=== PATIENT | female | born 1980 | race Caucasian/White ===

== ENCOUNTER 2022-08-16 11:22 | Emergency (ER) | payer MEDICAID, SELFPAY ==
[2022-08-16 11:46] VITALS: BP 121/81; PULSE 100; RESP 16; TEMP 36.6; O2SAT 88; BMI 62.3
--- NOTE | 2022-08-16 12:27 | ED_ITS ---
HPI - Animal Bite General Time Seen by Provider: 12:27 Date Seen: 08/16/22 Chief Complaint: Animal Bite Stated Complaint: Cat bite L hand Time Seen by Provider: 08/16/22 12:26 Source: patient and RN notes reviewed Mode of arrival: ambulatory Limitations: no limitations History of Present Illness HPI narrative: Liz is a very pleasant 41-year-old female with history of penicillin allergy who comes to the emergency room for a cat bite of her left 5th finger with increasing swelling. Patient notes that yesterday she was bitten by a cat that she was grooming. She has confirmed that this cat is fully vaccinated. She notes being bit numerous times before but has never had this happen. The bite is at the medial aspect of the D IP joint. She notes pain when it happened but overnight she has increased swelling and discomfort running down the entire length of her finger and even into the top of her hand. He has not experienced any fever or chills. She has not taken any medication. Related Data Home Medications Medication Instructions Recorded Confirmed dextroamphetamine-amphetamine 30 30 mg PO DAILY 08/16/22 08/16/22 mg tablet (Adderall) tramadol 50 mg tablet 50 - 100 mg PO Q6H PRN chronic pain 08/16/22 08/16/22 Previous Rx's Medication Instructions Recorded lisdexamfetamine 40 mg capsule 40 mg PO QAM #30 caps 02/01/22 (Vyvanse) dextroamphetamine-amphetamine 15 45 mg (3 x 15 mg) PO BID #180 tabs 08/08/22 mg tablet metronidazole 500 mg tablet 500 mg PO Q8H #20 tabs 08/16/22 Allergies Allergy/AdvReac Type Severity Reaction Status Date / Time Penicillins Allergy Unknown Rash Verified 08/16/22 11:45 Review of Systems Status of ROS: Reports: 10 or more systems reviewed and unremarkable except as noted in History and below Const: Denies: fever or chills Cardio: Denies: shortness of breath with exertion Resp: Denies: shortness of breath GI: Denies: nausea or vomiting Musculo: Reports: extremity pain, extremity swelling, joint pain and limited range of motion Integ/Breast: Reports: redness PFSH PFSH Social History Smoking Status: Former smoker Second hand tobacco smoke exposure: No How often do you have a drink containing alcohol: 2-4 times a month How many standard drinks containing alcohol do you have on a typical day: 1 or 2 AUDIT-C Alcohol total score: 2 Non-prescribed substance use: denies use service: No Exam Narrative: Exam Narrative: Alert and oriented. No acute distress. No respiratory distress. Examination of left 5th finger shows edema of the entire 5th digit increasing distally. Patient has a small 1.5 mm puncture wound at the medial aspect at the D IP flexion point. Forced extension does increase her discomfort. Forced extension at the MCP does not increase any pain in the hand. This area is warm to the touch. Patient does report purulent drainage earlier but I do not note this now. She also has 2 superficial scratches on the volar surface of her forearm. Const: Vital Signs, click to edit/add: Vital Signs - 24 hr 08/16/22 11:46 08/16/22 12:32 Temperature 97.9 F Pulse Rate [Pulse Oximeter] 100 Respiratory Rate 16 Blood Pressure [Ri ght Upper Arm] 121/81 Pulse Oximetry 88 100 Oxygen Delivery Me thod Room Air Room Air Documenting provider has reviewed patient's vital signs: yes Course Course Hospital Course: Patient's tetanus has not been renewed since 2011 and will do that with Adacel today. Given the rapid progression of symptoms overnight will use IV Rocephin 2 g x1 and initiation of Flagyl 500 mg. Patient will continue Flagyl 500 mg q.8 hours and see her primary tomorrow morning. Vital Signs Vital signs: Initial Vital Signs Temperature 97.9 F 08/16/22 11:46 Temperature Source Temporal Artery Scan 08/16/22 11:46 Pulse Rate 100 08/16/22 11:46 Respiratory Rate 16 08/16/22 11:46 Blood Pressure 121/81 08/16/22 11:46 Blood Pressure Mean 94 08/16/22 11:46 Blood Pressure Position Sitting 08/16/22 11:46 Pulse Oximetry 88 08/16/22 11:46 Oxygen Delivery Method Room Air 08/16/22 11:46 Vital Signs Temperature 97.9 F 08/16/22 11:46 Pulse Rate 100 08/16/22 11:46 Respiratory Rate 16 08/16/22 11:46 Blood Pressure 121/81 08/16/22 11:46 Pulse Oximetry 88 08/16/22 11:46 Oxygen Delivery Method Room Air 08/16/22 11:46 Temperature 97.9 F 08/16/22 11:46 Pulse Rate 100 08/16/22 11:46 Respiratory Rate 16 08/16/22 11:46 Blood Pressure 121/81 08/16/22 11:46 Pulse Oximetry 100 08/16/22 12:32 Oxygen Delivery Method Room Air 08/16/22 12:32 MDM - Animal Bite MDM Narrative Medical decision making narrative: 1. Cat bite cellulitis-recent given location of the puncture wound at the medial aspect of the D IP joint left 5th finger. She does not appear to have significant symptoms in the hand at this time. I do not feel that we should do a trial of orals given the rapid progression of the swelling. Instead 2 g IV Rocephin will be given in the ED and patient will be started on oral Flagyl 500 mg p.o. t.i.d.. I am hopeful that we will be able to obtain appointment with her primary Dr. Russell tomorrow morning. If she has marked improvement would transition her to an oral cephalosporin plus Flagyl, alternatively could do a floral quinolone. Antibiotic selection based on up-to-date information. 2. Tetanus updated 3. Disposition-home at this time. Recommend immediate return to the ER for progressing symptoms, vomiting, fever. Medical Records Attestation: I reviewed the patient's medical records. Imaging Data Left 5th finger x-ray: Attestation: I have reviewed the pertinent imaging results. My impression: No obvious foreign body. Discharge Plan Discharge Clinical Impression: Bite by animal Cellulitis Qualifiers: Site of cellulitis: other site Qualified Code(s): L03.818 - Cellulitis of other sites Patient Disposition: Home, Self-Care Condition: Improved Additional Instructions: Please follow up with Dr. Walter tomorrow at 11:15am ([facility] Continue Flagyl tablet every 8 hours. If continued or worsening symptoms, would suggest continuing Flagyl and the IV infusion of Rocephin. If improvement of symptoms will electronic data interchange specialist to pills. If you are worsening overnight including fever, worsening swelling, vomiting please return to the emergency room as soon as possible. Prescriptions: New metronidazole 500 mg tablet 500 mg PO Q8H Qty: 20 0RF No Action dextroamphetamine-amphetamine [Adderall] 30 mg tablet 30 mg PO DAILY tramadol 50 mg tablet 50 - 100 mg PO Q6H PRN (Reason: chronic pain) Vyvanse 40 mg capsule 40 mg PO QAM Qty: 30 0RF dextroamphetamine-amphetamine 15 mg tablet 45 mg PO BID Qty: 180 0RF Rx Instructions: administer doses at least 4-6 hours apart Follow Up/Referrals: Salvador Walter MD [Primary Care Provider] - Stand Alone Forms: [facility] Info Instructions
--- NOTE | 2022-08-16 12:28 | ED.NURSE ---
pt reports swelling at site of cat bite, on the left pinky. The swelling is traveling to her left forearm. She reports no pain to the site of the bite unless she bumps it, which the pain is then a 3. She is worried the cat bit down to her tendon because she can't bend her pinky.
[2022-08-16 12:32] VITALS: O2SAT 100
--- NOTE | 2022-08-16 12:34 | CRLHL7_ITS ---
For Patients: As a result of the Cures Act, medical imaging exams and procedure reports are released immediately into your electronic medical record. You may view this report before your referring provider. If you have questions, please contact your health care provider. Indication: Cat bite Technique: Three views Comparison: None Findings/Impression: Bones: Minimal calcification at the margin of the proximal phalanx of left 5th digit, likely some dystrophic calcification with a 1 millimeter chip fragment considered less likely. Joint spaces: Unremarkable. Soft tissues: Mild soft tissue swelling. Dictated by James Heredia MD @ 08/16/2022 1:26:35 PM (Electronically Signed)
--- OUTSIDE RECORDS SUMMARY | 2022-08-16 12:43 | XMS_ITS | Continuity of Care Document ---
Author Name Unknown Organization [facility] Address [address] [place] [address] Care Team Providers Care Route Sales Delivery Driver Name Role Phone [facility] Unavailable Unav ailable Advance Directives Directive Yes / No Effective Date File Name No Information Encounters Encounter Description Practice Location Reason(s) For Visit Diagnoses Date Provider Providers Copied on Encounter [facility], [address] [place], [place], [id number], [facility] No Information [facility]. [address] [address] [place], [id number], . tel:[phone] Referring Provider: Arian Soria, [address] [place], [address]. tel:[phone] Family History Family Member Type Diagnosis Age At Onset No Information Payers Payer name Insurance type Covered alliance party ID Authoriza johnathan(s) [facility] [id number] Social History Type Description Quantity Date Captured Comments Sex Female Smoking Status No Information Chief Complaint And Reason For Visit No Information Reason For Referral Reason For Referral No Information Plan Of Treatment Date Type Action Status No Information History Of Present Illness Encounter Date Complaint History Of Prese nt Illness No Information Functional Status Date Functional Assessmen t No Information Instructions Date Instruction Additional Infor mation No Information Assessments Type Assessment Date No Information Patient Care Teams Name Effective Dates (start - stop) Status Members No Information
--- OUTSIDE RECORDS SUMMARY | 2022-08-16 12:43 | XMS_ITS | Continuity of Care Document ---
Author Name Unknown Organization [facility] Address [address] [place] [address] Phone Care Team Providers Care Proration Clerk Name Role Phone Van Blanton MD Unavailable Unavailable Allergies, Adverse Reactions, Alerts Substance Reaction Status Criticality AMOXICILLIN TRIHYDRATE Active No In formation Medications Medication Instructions Dosage Effective Dates (start - stop) Status Comments AMPHETAMINE (unknown strength) Not Available - Active HYDROCODONE-ACETAMINOP HEN (unknown strength) Not Available - Active ADVIL (unknown strength) Not Available - Active MORPHINE SULFATE ER (unknown strength) Not Available - Active TRAMADOL HCL (unknown strength) Not Available - Active Procedures Procedure Date Office/Outpatient Visit,[facility] Office/outpatient visit,[facility] 2010 Advance Directives Directive Yes / No Effective Date File Name No Information Encounters Encounter Description Practice Location Reason(s) For Visit Diagnoses Date Provider Providers Copied on Encounter Office/Outpa tient Visit,[facility], [address], [place], [place], [id number], [place] tel:[phone] [facility] Other intervertebral disc degeneration, lumbar region 0 Transfeldt Ensor. [facility], [facility] [address] [place] [address], [facility] [address], [place], [place], [id number], [place]. tel:[phone] Referring Provider: Brent Carmona, [facility] [address] [place], [address]. tel:[phone] Office/outpa tient visit,[facility], [address] [facility] [address], [place], [address], [place] tel:[phone] [facility] No Information 1 Edacarmen Plasencia. [facility], [address], [place], [place], [id number], [place]. tel:[phone] Family History Family Member Type Diagnosis Age At Onset No Information Payers Payer name Insurance type Covered republican ID Authoriza tion(s) No Information Social History Type Description Quantity Date Captured Comments Alcohol Use Details Unknown Caffeine Use Details Unknown Tobacco Use Status Current non-smoker 20 Smoking Status Never smoker Non-Smoking Tobacco Use Details : No Details Available : No Details Available Sex Female Vital Signs Date / Time: Height Weight BMI Pulse Rate Blood Pressure Temperature Respiratory Rate Body Surface Area Head Circumference Head Circ. Percentile Wt./Arturo. Percentile BMI percentile Pulse Ox Inhaled Ox 3:21 PM 65.75 in 78.018 kg (172.00 lbs) 27.9 7 kg/m eter (2) 98.90 F Chief Complaint And Reason For Visit No Information Reason For Referral Reason For Referral No Information Plan Of Treatment Date Type Action Status No Information History Of Present Illness Encounter Date Complaint History Of Prese nt Illness No Information Functional Status Date Functional Assessmen t No Information Instructions Date Instruction Additional Infor mation No Information Assessments Type Assessment Date assessment Other intervertebral disc degene ration, lumbar region Patient Care Teams Name Effective Dates (start - stop) Status Members No Information
--- OUTSIDE RECORDS SUMMARY | 2022-08-16 12:44 | XMS_ITS | Continuity of Care Document ---
Author Name Unknown Organization [facility] Address [address] [place] [address] Care Team Providers Care Laundry Routeman Name Role Phone [facility] Unavailable Unav ailable Advance Directives Directive Yes / No Effective Date File Name No Information Encounters Encounter Description Practice Location Reason(s) For Visit Diagnoses Date Provider Providers Copied on Encounter [facility], [address] [place], [place], [id number], [facility] No Information [facility]. [address] [facility], [id number], . tel:[phone] Referring Provider: Arian Soria, [address] [place], [address]. tel:[phone] Family History Family Member Type Diagnosis Age At Onset No Information Payers Payer name Insurance type Covered republican ID Authoriza johnathan(s) [facility] [id number] Social History Type Description Quantity Date Captured [...]
--- OUTSIDE RECORDS SUMMARY | 2022-08-16 12:44 | XMS_ITS | Continuity of Care Document ---
Author Name Unknown Organization [facility] kylah Address [address] [facility] [place] [address] Phone Care Team Providers Care Sports Cartoonist Name Role Phone Charleen Lopez CNP Unavailable Unavailable Allergies, Adverse Reactions, Alerts Substance Reaction Status Criticality amoxicillin Rash Active No Information Medications Medication Instructions Dosage Effective Dates (start - stop) Status Comments tramadol 50 mg tablet take 1 - 2 tablet by ORAL route every 6 hours as needed for chronic pain, max 6/day - Active Adderall XR 30 mg capsule,extended release take 2 capsule by ORAL route every day in the morningupon awakening 60 MG - Active tramadol 50 mg tablet take 1 - 2 tablet by ORAL route every 6 hours as needed for chronic pain, max 6/day - No Longer Active bridge script Procedures Procedure Date OFFICE VISIT, EST TELEMEDICINE Drug Urine Toxology With Chromatography Drug test def 8-14 classes Foll-up eval q3mo opiod tx OFFICE/OUTPATIENT VISIT, EST Foll-up eval q3mo opiod tx OFFICE VISIT, EST TELEMEDICINE Foll-up eval q3mo opiod tx OFFICE/OUTPATIENT VISIT, EST Foll-up eval q3mo opiod tx OFFICE VISIT, EST TELEMEDICINE Foll-up eval q3mo opiod tx OFFICE/OUTPATIENT VISIT, EST ROUTINE BLOOD DRAW Drug test def 1-7 classes Drug Urine Toxology With Chromatography Foll-up eval q3mo opiod tx OFFICE VISIT, EST TELEMEDICINE Foll-up eval q3mo opiod tx OFFICE VISIT, EST TELEMEDICINE Drug Urine Toxology With Chromatography Drug test def 1-7 classes Foll-up eval q3mo opiod tx OFFICE/OUTPATIENT VISIT, EST PT-FOCUSED HLTH RISK ASSMT Foll-up eval q3mo opiod tx OFFICE VISIT, EST TELEMEDICINE Foll-up eval q3mo opiod tx OFFICE VISIT, EST TELEMEDICINE Drug Urine Toxology With Chromatography Drug test def 22+ classes Foll-up eval q3mo opiod tx PT-FOCUSED HLTH RISK ASSMT OFFICE/OUTPATIENT VISIT, EST Foll-up eval q3mo opiod tx OFFICE VISIT, EST TELEMEDICINE Foll-up eval q3mo opiod tx OFFICE VISIT, EST TELEMEDICINE Foll-up eval q3mo opiod tx OFFICE VISIT, EST TELEMEDICINE Foll-up eval q3mo opiod tx OFFICE VISIT, EST TELEMEDICINE Foll-up eval q3mo opiod tx OFFICE VISIT, EST TELEMEDICINE Foll-up eval q3mo opiod tx OFFICE VISIT, EST TELEMEDICINE Foll-up eval q3mo opiod tx OFFICE VISIT, EST TELEMEDICINE Foll-up eval q3mo opiod tx OFFICE VISIT, EST TELEMEDICINE Foll-up eval q3mo opiod tx OFFICE VISIT, EST TELEMEDICINE 20 OFFICE/OUTPATIENT VISIT, EST Foll-up eval q3mo opiod tx OFFICE VISIT, EST TELEMEDICINE 20 OFFICE VISIT, EST TELEMEDICINE 20 Foll-up eval q3mo opiod tx OFFICE VISIT, EST TELEMEDICINE 20 Foll-up eval q3mo opiod tx OFFICE/OUTPATIENT VISIT, EST Foll-up eval q3mo opiod tx ROUTINE BLOOD DRAW OFFICE VISIT, EST TELEMEDICINE 20 Foll-up eval q3mo opiod tx Foll-up eval q3mo opiod tx OFFICE/OUTPATIENT VISIT, EST Drug test def 22+ classes Drug Urine Toxology With Chromatography Foll-up eval q3mo opiod tx OFFICE/OUTPATIENT VISIT, EST Foll-up eval q3mo opiod tx OFFICE/OUTPATIENT VISIT, EST OFFICE/OUTPATIENT VISIT, EST OFFICE/OUTPATIENT VISIT, EST OFFICE/OUTPATIENT VISIT, EST Drug Urine Toxology With Chromatography OFFICE/OUTPATIENT VISIT, EST OFFICE/OUTPATIENT VISIT, EST OFFICE/OUTPATIENT VISIT, EST OFFICE/OUTPATIENT VISIT, EST Drug test def 22+ classes Drug Urine Toxology With Chromatography OFFICE/OUTPATIENT VISIT, EST OFFICE/OUTPATIENT VISIT, EST OFFICE/OUTPATIENT VISIT, EST Drug test def 22+ classes Drug Urine Toxology With Chromatography OFFICE/OUTPATIENT VISIT, EST OFFICE/OUTPATIENT VISIT, EST OFFICE/OUTPATIENT VISIT, EST OFFICE/OUTPATIENT VISIT, EST OFFICE/OUTPATIENT VISIT, EST OFFICE/OUTPATIENT VISIT, EST OFFICE/OUTPATIENT VISIT, EST OFFICE/OUTPATIENT VISIT, EST OFFICE/OUTPATIENT VISIT, EST OFFICE/OUTPATIENT VISIT, EST OFFICE/OUTPATIENT VISIT, EST OFFICE/OUTPATIENT VISIT, EST OFFICE/OUTPATIENT VISIT, EST OFFICE/OUTPATIENT VISIT, EST OFFICE/OUTPATIENT VISIT, EST OFFICE/OUTPATIENT VISIT, EST OFFICE/OUTPATIENT VISIT, EST OFFICE/OUTPATIENT VISIT, EST OFFICE/OUTPATIENT VISIT, EST OFFICE/OUTPATIENT VISIT, EST OFFICE/OUTPATIENT VISIT, EST Cancelled Appt Fee Cancelled Appt Fee THERAPEUTIC EXERCISES OFFICE/OUTPATIENT VISIT, EST THERAPEUTIC EXERCISES NEUROMUSCULAR REEDUCATION THERAPEUTIC EXERCISES MANUAL THERAPY TheraCane OFFICE/OUTPATIENT VISIT, EST THERAPEUTIC EXERCISES PT EVALUATION NEUROMUSCULAR REEDUCATION Surgical trays FLUOROGUIDE FOR SPINE INJECT Lidocaine injection Facet Jt Inj Lumbar RIGHT Facet Inj Lumbar 2nd Level RIGHT 2013 OFFICE/OUTPATIENT VISIT, EST OFFICE CONSULTATION Advance Directives Directive Yes / No Effective Date File Name No Information Encounters Encounter Description Practice Location Reason(s) For Visit Diagnoses Date Provider Providers Copied on Encounter [facility], [address] [place], [place], [id number] , [place] tel: [phone] [facility] [place] No Information 3 John Moseley [address] [place], [place], [id number], [place]. tel:[phone] [facility], [address], [place], [id number] , [place] tel: [phone] [facility] [place] No Information 3 John Moseley [address] [place] [address], [id number], [place]. tel:[phone] [facility], [address] [place] [address], [id number] , [place] tel:[phone] [facility] [place] No Information 3 Yang Don. [address] [place] [address], [id number], [place]. tel:[phone] OFFICE VISIT, EST TELEMEDICINE [facility], [address] [place] [address], [id number] , [place] tel:[phone] [facility] low back pain (chief complaint) Other spondylosis, lumbar regionOther intervertebral disc degeneration, lumbosacral regionPain in unspecified lower legLong term (current) use of opiate analgesic 3 Yang Don. [address] [place] [address], [id number], [place]. tel:[phone] Referring Provider: Arian Purvis, [address] [place] [address], [address] . tel:[phone] [facility], [address] [place] [address], [id number] , [place] tel:[phone] [facility] No Information 3 John Villaseñor. [address] [place] [address], [id number], [place]. tel:[phone] Referring Provider: Arian Purvis, [address] [place] [address], [address] . tel:[phone] OFFICE/OUTPAT IENT VISIT, EST [facility], [address] [place] [address], [id number] , [place] [phone] [facility] low back pain (chief complaint) Other spondylosis, lumbar regionOther intervertebral disc degeneration, lumbosacral regionPain in unspecified lower legLong term (current) use of opiate analgesicEncou nter for therapeutic drug level monitoring 3 John Villaseñor. [address] [place] [address], [id number], [place]. tel:[phone] Referring Provider: Arian Purvis, [address] [place], [place] [address], [address] . tel:[phone] OFFICE VISIT, [facility], [address] [place] [address], [id number] , [place] [phone] [facility] low back pain (chief complaint) Other spondylosis, lumbar regionOther intervertebral disc degeneration, lumbosacral regionPain in unspecified lower legLong term (current) use of opiate analgesic 3 Krenzer Charleen. [address] [place] [address], [id number], [place]. tel:[phone] Referring Provider: Arian Purvis, [address] [place] [address], [address] . tel:[phone] OFFICE/OUTPAT IENT VISIT, [facility], [address] [place] [address], [id number] , [place] [phone] [facility] low back pain (chief complaint) Other intervertebral disc degeneration, lumbosacral regionPain in unspecified lower legLong term (current) use of opiate analgesicOther spondylosis, lumbar region 2 Krenzer Charleen. [address] [place] [address], [id number], [place]. tel:[phone] Referring Provider: Arian Purvis, [address] [place] [address] [place], [address] . tel:[phone] OFFICE VISIT, [facility], [address] [place] [address], [id number] , [place] [phone] [facility] low back pain (chief complaint) Other intervertebral disc degeneration, lumbosacral regionPain in unspecified lower legLong term (current) use of opiate analgesic 2 Krenzer Charleen. [address] [place] [address], [id number], [place]. tel:[phone] OFFICE/OUTPAT IENT VISIT, EST [facility], [address] [place] [address], [id number] , [place] tel:[phone] [facility] [place] low back pain (chief complaint) Other intervertebral disc degeneration, lumbosacral regionPain in unspecified lower legLong term (current) use of opiate analgesicEncou nter for therapeutic drug level monitoring 2 John Villaseñor. [address] [place] [address], [id number], [place]. tel:[phone] Referring Provider: Arian Purvis, [address] [place] [address], [address] . tel:[phone] [facility], [address] [place] [address], [id number] , [place] tel:[phone] [facility] [place] No Information 2 John Villaseñor. [address] [place] [address], [id number], [place]. tel:[phone] Referring Provider: Arian Purvis, [address] [place] [address], [address] . tel:[phone] OFFICE VISIT, [facility], [address] [place] [address], [id number] , [place] tel:[phone] [facility] low back pain (chief complaint) Other intervertebral disc degeneration, lumbosacral regionPain in unspecified lower legLong term (current) use of opiate analgesic 2 John Villaseñor. [address] [place] [address], [id number], [place]. tel:[phone] OFFICE VISIT, EST TELEMEDICINE [facility], [address] [place] [address], [id number] , [place] tel:[phone] [facility] [place] low back pain (chief complaint) Other intervertebral disc degeneration, lumbosacral regionPain in unspecified lower legLong term (current) use of opiate analgesic 2 John Villaseñor. [address] [place] [address], [id number], [place]. tel:[phone] Referring Provider: Arian Purvis, [address] [place], [place] [address], [address] . tel:[phone] [facility], [address] [place] [address], [id number] , [place] tel:[phone] [facility] Intervertebral disc disorders with radiculopathy, lumbar region Apr-2 2 Alpanzer Charleen. [address] [place] [address], [id number], [place]. tel:[phone] [facility], [address] [place] [address], [id number] , [place] tel:[phone] [facility] No Information 2 Aubreezer Charleen. [address] [place] [address], [id number], [place]. tel:[phone] Referring Provider: Arian Purvis, [address] [place], [place] [address], [address] . tel:[phone] OFFICE/OUTPAT IENT VISIT, EST [facility], [address] [place] [address], [id number] , [place] tel:[phone] [facility] low back pain (chief complaint) [facility] (current) use of opiate analgesicPain in unspecified lower legOther intervertebral disc degeneration, lumbosacral regionEncounte r for therapeutic drug level monitoringEnco unter for screening for other disorder 2 Aubreezer Charleen. [address] [place] [address], [id number], [place]. tel:[phone] Referring Provider: Arian Purvis, [address] [place], [place] [address], [address] . 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 [address] [place] [address], [id number], [place]. 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 [address] [place] [address], [id number], [place]. tel:[phone] [facility], [address] [place] [address], [id number] , [place] [phone] [facility] No Information 1 John Villasñeor. [address] [place] [address], [id number], [place]. tel:[phone] Referring Provider: Arian Purvis, [address] [place], [place] [address], [address] . 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 [address] [place] [address], [id number], [place]. tel:[phone] Referring Provider: Arian Purvis, [address] [place], [place] [address], [address] . 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 [address] [place] [address], [id number], [place]. tel:[phone] Referring Provider: Arian Purvis, [address] [place], [place] [address], [address] . tel:[phone] OFFICE VISIT, EST TELEMEDICINE [facility], [address] [place] [address], [id number] , [place] tel:[phone] [facility] [place] low back pain (chief complaint) termite exterminator (current) use of opiate analgesicPain in unspecified lower legOther intervertebral disc degeneration, lumbosacral region 1 John Charleen. [address] [place] [address], [id number], [place]. tel:[phone] Referring Provider: Arian Purvis, [address] [place] [address] [place], [address] . tel:[phone] OFFICE VISIT, EST TELEMEDICINE [facility], [address] [place] [address], [id number] , [place] tel:[phone] [facility] low back pain (chief complaint) [facility] (current) use of opiate analgesicPain in unspecified lower legOther intervertebral disc degeneration, lumbosacral region 1 John CharleenPablo [address] [place] [address], [id number], [place]. tel:[phone] Referring Provider: Arian Purvis, [address] [place] [address] [facility] [place], [address] . tel:[phone] OFFICE VISIT, EST TELEMEDICINE [facility], [address] [place] [address], [id number] , [place] tel:[phone] [facility] [place] low back pain (chief complaint) CHCF (current) use of opiate analgesicPain in unspecified lower legOther intervertebral disc degeneration, lumbosacral region 1 Krenzer Charleen. [address] [place] [address], [id number], [place]. tel:[phone] Referring Provider: Arian Purvis, [address] [place] [address] [place], [address] . tel:[phone] OFFICE VISIT, [facility], [address] [place] [address], [id number] , [place] [phone] [facility] low back pain (chief complaint) CH[facility] (current) use of opiate analgesicPain in unspecified lower legOther intervertebral disc degeneration, lumbosacral region Dec-0 8-202 0 Krenzer Charleen. [address] [place] [address], [id number], [place]. tel:[phone] Referring Provider: Arian Purvis, [address] [place], [place] [address], [address] . tel:[phone] OFFICE VISIT, [facility], [address] [place] [address], [id number] , [place] [phone] [facility] low back pain (chief complaint) [facility]CF (current) use of opiate analgesicPain in unspecified lower legOther intervertebral disc degeneration, lumbosacral region Nov-0 9-202 0 Krenzer Charleen. [address] [place] [address], [id number], [place]. tel:[phone] Referring Provider: Arian Purvis, [address] [place], [place] [address], [address] . tel:[phone] OFFICE VISIT, [facility], [address] [place] [address], [id number] , [place] [phone] [facility] ([facility] complaint) Pain in unspecified lower legOther intervertebral disc degeneration, lumbosacral regionLong term (current) use of opiate analgesic Sep-1 0-202 0 Krenzer Charleen. [address] [place] [address], [id number], [place]. tel:[phone] Referring Provider: Arian Purvis, [address] [place], [place] [address], [address] . tel:[phone] OFFICE VISIT, [facility], [address] [place] [address], [id number] , [place] tel:[phone] [facility] low back pain (chief complaint) Pain in unspecified lower legOther intervertebral disc degeneration, lumbosacral regionLong term (current) use of opiate analgesic Aug-2 8202 0 Krenzer Charleen. [address] [place] [address], [id number], [place]. tel:[phone] Referring Provider: Arian Purvis, [address] [place], [place] [address], [address] . tel:[phone] OFFICE VISIT, [facility], [address] [place] [address], [id number] , [place] tel:[phone] [facility] low back pain (chief complaint) [facility] (current) use of opiate analgesicOther intervertebral disc degeneration, lumbosacral regionPain in unspecified lower leg Aug-0 2202 0 Luke Rodriguez. [address] [place] [address], [id number], [place]. tel:[phone] Referring Provider: Arian Purvis, [address] [place], [place] [address], [address] . tel:[phone] OFFICE/OUTPAT IENT VISIT, [facility], [address] [place] [address], [id number] , [place] tel:[phone] [facility] low back pain (chief complaint) Pain in unspecified lower legOther intervertebral disc degeneration, lumbosacral regionLong term (current) use of opiate analgesic Jul-0 2202 0 Krenzer Charleen. [address] [place] [address], [id number], [place]. tel:[phone] Referring Provider: Arian Purvis, [address] [place], [place] [address], [address] . tel:[phone] OFFICE VISIT, [facility], [address] [place] [address], [id number] , [place] tel:[phone] [facility] low back pain (chief complaint) Other intervertebral disc degeneration, lumbosacral regionPain in unspecified lower legLong term (current) use of opiate analgesic Apr-3 0-202 0 John Villaseñor. [address] [place] [address], [id number], [place]. tel:[phone] Referring Provider: Arian Purvis, [address] [place] [address] [facility] [place], [address] . tel:[phone] OFFICE VISIT, [facility], [address] [place] [address], [id number] , [place] [phone] [facility]) Other intervertebral disc degeneration, lumbosacral regionPain in unspecified lower legLong term (current) use of opiate analgesic Mar-2 - 0 John Villaseñor. [address] [place] [address], [id number], [place]. tel:[phone] Referring Provider: Arian Purvis, [address] [place] [address] [place], [address] . tel:[phone] OFFICE/OUTPAT IENT VISIT, [facility], [address] [place] [address], [id number] , [place] [phone] [facility] low back pain (chief complaint) Other intervertebral disc degeneration, lumbosacral regionPain in unspecified lower legLong term (current) use of opiate analgesicEncou nter for screening for other disorder Apr-0 0 John Villaseñor. [address] [place] [address], [id number], [place]. tel:[phone] Referring Provider: Arian Purvis, [address] [place] [address] [place], [address] . tel:[phone] OFFICE VISIT, [facility], [address] [place] [address], [id number] , [place] tel:[phone] [facility] low back pain (chief complaint) Other intervertebral disc degeneration, lumbosacral regionPain in unspecified lower legLong term (current) use of opiate analgesic Feb-0 - 0 Alpanzer Charleen. [address] [place], [place], [id number], [place]. tel:[phone] OFFICE/OUTPAT IENT VISIT, [facility], [address] [place] [address], [id number] , [place] [phone] [facility] low back pain (chief complaint) Other intervertebral disc degeneration, lumbosacral regionPain in unspecified lower legLong term (current) use of opiate analgesic Feb-0 0 Krenzer Charleen. [address] [place] [address], [id number], [place]. tel:[phone] Referring Provider: Arian Purvis, [address] [place] [address] [place], [address] . tel:[phone] OFFICE/OUTPAT IENT VISIT, [facility], [address] [place] [address], [id number] , [place] tel:[phone] [facility] low back pain (chief complaint) Other intervertebral disc degeneration, lumbosacral regionLong term (current) use of opiate analgesicPain in unspecified lower legEncounter for therapeutic drug level monitoring 0 9 [facility]. [address], [place], [id number], [place]. tel:[phone] Referring Provider: Arian Purvis, [place], [address] . tel:[phone] OFFICE/OUTPAT IENT VISIT, [facility], [address] [place] [address], [id number] , [place] tel:[phone] [facility] low back pain (chief complaint) Other intervertebral disc degeneration, lumbosacral regionLong term (current) use of opiate analgesicPain in unspecified lower leg Nov-0 6 9 [facility]. [address] [facility] [address], [place], [place], [id number], [place]. tel:[phone] Referring Provider: Arian Purvis, [address] [place] [address], [address] . tel:[phone] OFFICE/OUTPAT IENT VISIT, [facility], [address] [place] [address], [id number] , [place] tel:[phone] [facility] low back pain (chief complaint) Other intervertebral disc degeneration, lumbosacral regionLong term (current) use of opiate analgesic Sep-2 9 Krenzer Charleen. [address] [place] [address], [id number], [place]. tel:[phone] Referring Provider: Arian Purvis, [address] [place] [address] [facility] [place], [address] . tel:[phone] OFFICE/OUTPAT IENT VISIT, [facility], [address] [place] [address], [id number] , [place] tel:[phone] [facility] low back pain (chief complaint) Other intervertebral disc degeneration, lumbosacral regionLong term (current) use of opiate analgesic Aug-2 9 Krenzer Charleen. [address] [place] [address], [id number], [place]. tel:[phone] Referring Provider: Arian Purvis, [address] [place] [address], [address] . tel:[phone] [facility], [address] [place] [address], [id number] , [place] tel:[phone] [facility] low back pain (chief complaint) Other intervertebral disc degeneration, lumbosacral regionLong term (current) use of opiate analgesic Aug-2 9 Krenzer Charleen. [address] [place] [address], [id number], [place]. tel:[phone] Referring Provider: Arian Purvis, [address] [place] [address] [place], [address] . tel:[phone] OFFICE/OUTPAT IENT VISIT, [facility], [address] [place] [address], [id number] , [place] tel: [phone] [facility] low back pain (chief complaint) Other intervertebral disc degeneration, lumbosacral regionLong term (current) use of opiate analgesicEncou nter for therapeutic drug level monitoring John Moseley [address] [place] [address], [id number], [place]. tel:[phone] Referring Provider: Arian Purvis, [address] [place], [place] [address], [address] . tel:[phone] OFFICE/OUTPAT IENT VISIT, [facility], [address] [place] [address], [id number] , [place] tel:[phone] [facility] low back pain (chief complaint) Other intervertebral disc degeneration, lumbosacral regionLong term (current) use of opiate analgesic John Moseley [address] [place] [address], [id number], [place]. tel:[phone] Referring Provider: Arian Purvis, [address] [place], [place] [address], [address] . tel:[phone] OFFICE/OUTPAT IENT VISIT, [facility], [address] [place] [address], [id number] , [place] tel:[phone] [facility] low back pain (chief complaint) Other intervertebral disc degeneration, lumbosacral regionLong term (current) use of opiate analgesic John Moseley [address] [place] [address], [id number], [place]. tel:[phone] Referring Provider: Arian Purvis, [address] [place], [place] [address], [address] . tel:[phone] OFFICE/OUTPAT IENT VISIT, [facility], [address] [place] [address], [id number] , [place] [phone] [facility] low back pain (chief complaint) Other intervertebral disc degeneration, lumbosacral region Jasper- 9 John Villaseñor. [address] [place] [address], [id number], [place]. tel:[phone] Referring Provider: Arian Purvis, [address] [place], [place] [address], [address] . tel:[phone] OFFICE/OUTPAT IENT VISIT, [facility], [address] [place] [address], [id number] , [place] [phone] [facility] low back pain (chief complaint) Other intervertebral disc degeneration, lumbosacral regionLong term (current) use of opiate analgesic Nov-0 8 John Villaseñor. [address] [place] [address], [id number], [place]. tel:[phone] Referring Provider: Arian Purvis, [address] [place], [place] [address], [address] . tel:[phone] OFFICE/OUTPAT IENT VISIT, [facility], [address] [place] [address], [id number] , [place] [phone] [facility] low back pain (chief complaint) Other intervertebral disc degeneration, lumbosacral regionLong term (current) use of opiate analgesic Sep-0 8 Luke Rodriguez. [address] [place] [address], [id number], [place]. tel:[phone] Referring Provider: Arian Purvis, [address] [place], [place] [address], [address] . tel:[phone] OFFICE/OUTPAT IENT VISIT, [facility], [address] [place] [address], [id number] , [place] tel:[phone] [facility] low back pain (chief complaint) Other intervertebral disc degeneration, lumbosacral region Blaze-0 2 8 John Villaseñor. [address] [place] [address], [id number], [place]. tel:[phone] Referring Provider: Arian Purvis, [address] [place] [address], [place], [address] . tel:[phone] OFFICE/OUTPAT IENT VISIT, [facility], [address] [place] [address], [id number] , [place] tel:[phone] [facility] low back pain (chief complaint) Other intervertebral disc degeneration, lumbosacral regionLong term (current) use of opiate analgesic May-0 3-201 8 Krenzer Charleen. [address] [place] [address], [id number], [place]. [phone] Referring Provider: Arian Purvis, [address] [place] [address], [address] . tel:[phone] OFFICE/OUTPAT IENT VISIT, [facility], [address] [place] [address], [id number] , [place] tel:[phone] [facility] low back pain (chief complaint) Other intervertebral disc degeneration, lumbosacral regionLong term (current) use of opiate analgesic Mar-0 7-201 8 Krenzer Charleen. [address] [place] [address], [id number], [place]. [phone] Referring Provider: Arian Purvis, [address] [place] [address], [address] . tel:[phone] OFFICE/OUTPAT IENT VISIT, [facility], [address] [place] [address], [id number] , [place] tel:[phone] [facility] low back pain (chief complaint) Other intervertebral disc degeneration, lumbosacral region 0-201 8 Krenzer Charleen. [address] [place] [address], [id number], [place]. tel:[phone] Referring Provider: Arian Purvis, [address] [place] [address], [address] . tel:[phone] OFFICE/OUTPAT IENT VISIT, [facility], [address] [place] [address], [id number] , [place] tel:[phone] [facility] low back pain (chief complaint) Other intervertebral disc degeneration, lumbosacral region 7 Aubreezer Charleen. [address] [place] [address], [id number], [place]. tel:[phone] Referring Provider: Arian Purvis, [address] [place] [address], [address] . tel:[phone] OFFICE/OUTPAT IENT VISIT, [facility], [address] [place] [address], [id number] , [place] tel:[phone] [facility] low back pain (chief complaint) Other intervertebral disc degeneration, lumbosacral region 7 John Charleen. [address] [place] [address], [id number], [place]. tel:[phone] Referring Provider: Arian Purvis, [address] [place] [address], [address] . tel:[phone] OFFICE/OUTPAT IENT VISIT, [facility], [address] [place] [address], [id number] , [place] tel:[phone] [facility] low back pain (chief complaint) Other intervertebral disc degeneration, lumbosacral regionLong term (current) use of opiate analgesic 7 John Villaseñor. [address] [place] [address], [id number], [place]. tel:[phone] Referring Provider: Arian Purvis, [address] [place] [address], [address] . tel:[phone] OFFICE/OUTPAT IENT VISIT, [facility], [address] [place] [address], [id number] , [place] tel:[phone] [facility] low back pain (chief complaint) Other intervertebral disc degeneration, lumbosacral region 2-201 7 John Villaseñor. [address] [place] [address], [id number], [place]. tel:[phone] Referring Provider: Arian Purvis, [address] [place], [place] [address], [address] . tel:[phone] OFFICE/OUTPAT IENT VISIT, [facility], [address] [place] [address], [id number] , [place] [phone] [facility] low back pain (chief complaint) Other intervertebral disc degeneration, lumbosacral region 7 Krenzer Charleen. [address] [place] [address], [id number], [place]. tel:[phone] Referring Provider: Arian Purvis, [address] [place] [address] [place], [address] . tel:[phone] OFFICE/OUTPAT IENT VISIT, [facility], [address] [place] [address], [id number] , [place] tel:[phone] [facility] low back pain (chief complaint) Other intervertebral disc degeneration, lumbosacral region 6 Krenzer Charleen. [address] [place] [address], [id number], [place]. tel:[phone] Referring Provider: Arian Purvis, [address] [place], [place] [address], [address] . tel:[phone] OFFICE/OUTPAT IENT VISIT, [facility], [address] [place] [address], [id number] , [place] tel:[phone] [facility] low back pain (chief complaint) Other intervertebral disc degeneration, lumbosacral regionLong term (current) use of opiate analgesic 6 Krenzer Charleen. [address] [place] [address], [id number], [place]. tel:[phone] Referring Provider: Arian Purvis, [address] [place], [place] [address], [address] . tel:[phone] OFFICE/OUTPAT IENT VISIT, [facility], [address] [place] [address], [id number] , [place] tel:[phone] [facility] low back pain (chief complaint) Other intervertebral disc degeneration, lumbosacral region 6 Krenzer Charleen. [address] [place] [address], [id number], [place]. tel:[phone] Referring Provider: Arian Purvis, [address] [place] [address] [place], [address] . tel:[phone] OFFICE/OUTPAT IENT VISIT, [facility], [address] [place] [address], [id number] , [place] tel:[phone] [facility] low back pain (chief complaint) Other intervertebral disc degeneration, lumbosacral region 6 Krenzer Charleen. [address] [place] [address], [id number], [place]. tel:[phone] Referring Provider: Arian Purvis, [address] [place] [address], [address] . tel:[phone] OFFICE/OUTPAT IENT VISIT, [facility], [address] [place] [address], [id number] , [place] tel:[phone] [facility] low back pain (chief complaint) Other intervertebral disc degeneration, lumbosacral region 3-201 6 Krenzer Charleen. [address] [place] [address], [id number], [place]. tel:[phone] Referring Provider: Arian Purvis, [address] [place] [address], [address] . tel:[phone] OFFICE/OUTPAT IENT VISIT, [facility], [address] [place] [address], [id number] , [place] tel:[phone] [facility] Back Pain (chief complaint) Other intervertebral disc degeneration, lumbosacral region 0 6-201 6 Krenzer Charleen. [address] [place] [address], [id number], [place]. tel:[phone] Referring Provider: Arian Purvis, [address] [place] [address], [address] . 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 [address] [place] [address], [id number], [place]. tel:[phone] OFFICE/OUTPAT IENT VISIT, [facility], [address] [place] [address], [id number] , [place] tel:[phone] [facility] [place] Back Pain (chief complaint) Other intervertebral disc degeneration, lumbosacral region Dec-0 5-201 5 Krenzer Charleen. [address] [place] [address], [id number], [place]. tel:[phone] Referring Provider: Arian Purvis, [address] [place] [address], [address] . tel:[phone] OFFICE/OUTPAT IENT VISIT, [facility], [address] [place] [address], [id number] , [place] tel:[phone] [facility] [place] Back Pain (chief complaint) Other intervertebral disc degeneration, lumbosacral region Nov-0 8-201 5 Krenzer Charleen. [address] [place] [address], [id number], [place]. tel:[phone] Referring Provider: Arian Purvis, [address] [place] [address], [address] . tel:[phone] OFFICE/OUTPAT IENT VISIT, [facility], [address] [place] [address], [id number] , [place] [phone] [facility] [place] Back Pain (chief complaint) Degeneration of lumbar or lumbosacral intervertebral disc 3-201 5 Krenzer Charleen. [address] [place] [address], [id number], [place]. tel:[phone] Referring Provider: Arian Purvis, [address] [place], [place] [address], [address] . tel:[phone] OFFICE/OUTPAT IENT VISIT, [facility], [address] [place] [address], [id number] , [place] tel:[phone] [facility] [place] Back Pain (chief complaint) Degeneration of lumbar or lumbosacral intervertebral disc Gene- 5 Krenzer Charleen. [address] [place] [address], [id number], [place]. [phone] Referring Provider: Arian Purvis, [address] [place] [address] [place], [address] . tel:[phone] OFFICE/OUTPAT IENT VISIT, [facility], [address] [place] [address], [id number] , [place] tel:[phone] [facility] Back Pain (chief complaint) Degeneration of lumbar or lumbosacral intervertebral disc May- 5 5 Krenzer Charleen. [address] [place] [address], [id number], [place]. [phone] Referring Provider: Arian Purvis, [address] [place], [place] [address], [address] . tel:[phone] OFFICE/OUTPAT IENT VISIT, [facility], [address] [place] [address], [id number] , [place] tel:[phone] [facility] Back Pain (chief complaint) Degeneration of lumbar or lumbosacral intervertebral disc Fe- 2 5 Krenzer Charleen. [address] [place] [address], [id number], [place]. tel:[phone] Referring Provider: Arian Purvis, [address] [place], [place] [address], [address] . tel:[phone] [facility], [address] [place] [address], [id number] , [place] tel:[phone] [facility] Current use of a medication Feb-1 1-201 5 John Villaseñor. [address] [place] [address], [id number], [place]. [phone] [facility], [address] [place] [address], [id number] , [place] tel: [phone] [facility] general orthopedic (chief complaint) Lumbago No Information OFFICE/OUTPAT IENT VISIT, [facility], [address] [place] [address], [id number] , [place] tel: [phone] [facility] Back Pain (chief complaint) Degeneration of lumbar or lumbosacral intervertebral disc 4 John Villaseñor. [address] [place] [address], [id number], [place]. [phone] Referring Provider: Arian Purvis, [address] [place] [address] [place], [address] . tel:[phone] OFFICE/OUTPAT IENT VISIT, [facility], [address] [place] [address], [id number] , [place] tel: [phone] [facility] low back pain (chief complaint) LumbagoDegener ation of lumbar or lumbosacral intervertebral disc 4 John Villaseñor. [address] [place] [address], [id number], [place]. [phone] Referring Provider: Arian Purvis, [address] [place] [address] [place], [address] . tel:[phone] [facility], [address] [place] [address], [id number] , [place] tel: [phone] [facility] [place] No Information No Information Referring Provider: Arian Purvis, [address] [place] [address] [place], [address] . [phone] [facility], [address] [place] [address], [id number] , [place] tel: [phone] [facility] [place] No Information 4 Will Arian. [address] [place] [address], [id number], [place]. tel:[phone] Referring Provider: Arian Purvis, [address] [place] [address], [address] . tel:[phone] [facility], [address] [place] [address], [id number] , [phone] [facility] [place] back pain (chief complaint) No Information 4 Will Arian. [address] [place] [address], [id number], [place]. tel:[phone] Referring Provider: Arian Purvis, [address] [place] [address], [address] . tel:[phone] OFFICE/OUTPAT IENT VISIT, [facility], [address] [place] [address], [id number] , [place] tel:[phone] [facility] low back pain (chief complaint) Degeneration of lumbar or lumbosacral intervertebral disc 4 John Villaseñor. [address] [place] [address], [id number], [place]. tel:[phone] Referring Provider: Arian Purvis, [address] [place] [address], [address] . tel:[phone] [facility], [address] [place] [address], [id number] , [place] tel:[phone] [facility] [place] back pain (chief complaint) No Information 4 Will Arian. [address] [place] [address], [id number], [place]. tel:[phone] Referring Provider: Arian Purvis, [address] [place] [address], [address] . tel:[phone] [facility], [address] [place] [address], [id number] , [place] tel:[phone] [facility] [place] back pain (chief complaint) No Information 4 Dain Don. [address] [place] [address], [id number], [place]. tel:[phone] Referring Provider: Arian Purvis, [address] [place] [address], [address] . tel:[phone] OFFICE/OUTPAT IENT VISIT, [facility], [address] [place] [address], [id number] , [place] tel:[phone] [facility] [place] low back pain (chief complaint) Degeneration of lumbar or lumbosacral intervertebral disc 4 John Villaseñor. [address] [place] [address], [id number], [place]. tel:[phone] Referring Provider: Arian Purvis, [address] [place] [address], [address] . tel:[phone] [facility], [address] [place] [address], [id number] , [place] tel:[phone] [facility] [place] back pain (chief complaint) No Information 4 John Villaseñor. [address] [place] [address], [id number], [place]. tel:[phone] Referring Provider: Arian Purvis, [address] [place] [address], [address] . tel:[phone] [facility], [address] [place] [address], [id number] , [place] tel:[phone] [facility] [place] Degeneration of lumbar or lumbosacral intervertebral disc 4 Diana Pena. [address] [place] [address], [id number], [place]. tel:[phone] Referring Provider: Arian Purvis, [address] [place] [address], [address] . tel:[phone] OFFICE/OUTPAT IENT VISIT, [facility], [address] [place] [address], [id number] , tel:[phone] [facility] [place] low back pain (chief complaint) Lumbago 4-201 4 John Villaseñor. [address] [place] [address], [id number], . tel:[phone] Referring Provider: Arian Purvis, [address] [place] [address], [address] . tel:[phone] OFFICE CONSULTATION [facility], [address] [place] [address], [id number] , tel:[phone] [facility] low back pain (chief complaint) Degeneration of lumbar or lumbosacral intervertebral disc 0-201 4 John Villaseñor. [address] [place], [place], [id number], . tel:[phone] Referring Provider: Arian Purvis, [address] [place] [address], [address] . tel:[phone] Family History Family Member Type Diagnosis Age At Onset Mother Problem (finding) fibromyalgia Payers Payer name Insurance type Covered constitution party ID Glynn mann(s) [facility] [id number] Social History Type Description Quantity Date Captured Comments Sex Female Smoking Status No Information Chief Complaint And Reason For Visit No Information Reason For Referral Reason For Referral No Information Plan Of Treatment Date Type Action Status Goal AST (SGOT). Due on 23 due Goal UDT. Due on due Goal AUTOMOTIVE INTERNET SALES CONSULTANT Scanned. Due on 023 due Goal OARS. Due on due Goal Order Annual PT. Due on due Goal Update Social Hi story. Due on due Goal RADIO INTELLIGENCE OPERATOR Paperwork. Due on due Goal Weight. Due on d ue Goal Unhealthy drug u se screening. Due on due Goal Height. Due on d ue Goal Creatinine. Due on due Goal Lipid panel. Due on due Goal HPV. Due on due Goal Tobacco Use. Due on due Goal PHQ-9. Due on du e Goal Hepatitis C scre ening. Due on due Goal Medication Recon ciliation. Due on due Goal ALT (SGPT). Due on due Goal Review Allergy L ist. Due on due Goal AUTOMOTIVE INTERNET SALES CONSULTANT Scanned. Due on due Goal Creatinine. Due on due Goal ALT (SGPT). Due on due Goal HPV. Due on due Goal RADIO INTELLIGENCE OPERATOR Paperwork. Due on due Goal Medication Recon ciliation. Due on due Goal OARS. Due on due Goal AST (SGOT). Due on due Goal Order Annual PT. Due on due Goal Tobacco Use. Due on due Goal UDT. Due on due Goal Height. Due on d ue Goal Unhealthy drug u se screening. Due on due Goal Weight. Due on d ue Goal Update Social Hi story. Due on due Goal PHQ-9. Due on du e Goal Lipid panel. Due on due Goal Review Allergy L ist. Due on due Goal Hepatitis C scre ening. Due on due Goal Review Allergy L ist. Due on due Goal Medication Recon ciliation. Due on due Goal Lipid panel. Due on due Goal Update Social Hi story. Due on due Goal AST (SGOT). Due on due Goal PHQ-9. Due on du e Goal ALT (SGPT). Due on due Goal Height. Due on d ue Goal Tobacco Use. Due on due Goal Weight. Due on d ue Goal HPV. Due on due Goal Hepatitis C scre ening. Due on due Goal AUTOMOTIVE INTERNET SALES CONSULTANT Scanned. Due on due Goal Creatinine. Due on due Goal RADIO INTELLIGENCE OPERATOR Paperwork. Due on due Goal OARS. Due on due Goal UDT. Due on due Goal Order Annual PT. Due on due Goal Unhealthy drug u se screening. Due on due Goal Height. Due on d ue Goal PHQ-9. Due on du e Goal Order Annual PT. Due on due Goal Lipid panel. Due on due Goal Creatinine. Due on due Goal OARS. Due on due Goal Medication Recon ciliation. Due on due Goal UDT. Due on due Goal Review Allergy L ist. Due on due Goal Tobacco Use. Due on due Goal AST (SGOT). Due on due Goal Weight. Due on d ue Goal ALT (SGPT). Due on due Goal AUTOMOTIVE INTERNET SALES CONSULTANT Scanned. Due on due Goal Hepatitis C scre ening. Due on due Goal Unhealthy drug u se screening. Due on due Goal HPV. Due on due Goal Update Social Hi story. Due on due Goal RADIO INTELLIGENCE OPERATOR Paperwork. Due on due Goal AUTOMOTIVE INTERNET SALES CONSULTANT Scanned. Due on due Goal Hepatitis C scre ening. Due on due Goal AST (SGOT). Due on due Goal Update Social Hi story. Due on due Goal PHQ-9. Due on du e Goal HPV. Due on due Goal Tobacco Use. Due on due Goal Medication Recon ciliation. Due on due Goal Weight. Due on d ue Goal Unhealthy drug u se screening. Due on due Goal Height. Due on d ue Goal Lipid panel. Due on due Goal Creatinine. Due on due Goal OARS. Due on due Goal UDT. Due on due Goal Review Allergy L ist. Due on due Goal Order Annual PT. Due on due Goal RADIO INTELLIGENCE OPERATOR Paperwork. Due on due Goal ALT (SGPT). Due on due Goal Height. Due on d ue Goal Lipid panel. Due on due Goal OARS. Due on due Goal ALT (SGPT). Due on due Goal PHQ-9. Due on du e Goal RADIO INTELLIGENCE OPERATOR Paperwork. Due on due Goal AUTOMOTIVE INTERNET SALES CONSULTANT Scanned. Due on due Goal Unhealthy drug u se screening. Due on due Goal HPV. Due on due Goal Review Allergy L ist. Due on due Goal Hepatitis C scre ening. Due on due Goal Medication Recon ciliation. Due on due Goal Tobacco Use. Due on due Goal Update Social Hi story. Due on due Goal Order Annual PT. Due on due Goal UDT. Due on due Goal Weight. Due on d ue Goal AST (SGOT). Due on due Goal Creatinine. Due on due Goal Update Social Hi story. Due on due Goal Medication Recon ciliation. Due on due Goal Weight. Due on d ue Goal OARS. Due on due Goal ALT (SGPT). Due on due Goal Creatinine. Due on due Goal PHQ-9. Due on du e Goal Lipid panel. Due on due Goal AUTOMOTIVE INTERNET SALES CONSULTANT Scanned. Due on due Goal Review Allergy L ist. Due on due Goal Hepatitis C scre ening. Due on due Goal Order Annual PT. Due on due Goal Unhealthy drug u se screening. Due on due Goal Tobacco Use. Due on due Goal UDT. Due on due Goal Height. Due on d ue Goal AST (SGOT). Due on due Goal RADIO INTELLIGENCE OPERATOR Paperwork. Due on due Goal HPV. Due on due Goal Medication Recon ciliation. Due on due Goal AUTOMOTIVE INTERNET SALES CONSULTANT Scanned. Due on due Goal AST (SGOT). Due on due Goal Lipid panel. Due on due Goal ALT (SGPT). Due on due Goal UDT. Due on due Goal RADIO INTELLIGENCE OPERATOR Paperwork. Due on due Goal PHQ-9. Due on du e Goal Height. Due on d ue Goal Unhealthy drug u se screening. Due on due Goal Creatinine. Due on due Goal Order Annual PT. Due on due Goal Review Allergy L ist. Due on due Goal Tobacco Use. Due on due Goal OARS. Due on due Goal Update Social Hi story. Due on due Goal Hepatitis C scre ening. Due on due Goal Weight. Due on d ue Goal HPV. Due on due Goal ALT (SGPT). Due on due Goal UDT. Due on due Goal Creatinine. Due on due Goal Weight. Due on d ue Goal AUTOMOTIVE INTERNET SALES CONSULTANT Scanned. Due on due Goal AST (SGOT). Due on due Goal Review Allergy L ist. Due on due Goal OARS. Due on due Goal Order Annual PT. Due on due Goal RADIO INTELLIGENCE OPERATOR Paperwork. Due on due Goal Unhealthy drug u se screening. Due on due Goal Lipid panel. Due on due Goal Update Social Hi story. Due on due Goal Tobacco Use. Due on due Goal PHQ-9. Due on du e Goal Hepatitis C scre ening. Due on due Goal Medication Recon ciliation. Due on due Goal Height. Due on d ue Goal HPV. Due on due Goal Unhealthy drug u se screening. Due on due Goal Review Allergy L ist. Due on due Goal ALT (SGPT). Due on due Goal Weight. Due on d ue Goal Lipid panel. Due on due Goal Order Annual PT. Due on due Goal Medication Recon ciliation. Due on due Goal Creatinine. Due on due Goal UDT. Due on due Goal OARS. Due on due Goal Tobacco Use. Due on due Goal Update Social Hi story. Due on due Goal AST (SGOT). Due on due Goal HPV. Due on due Goal RADIO INTELLIGENCE OPERATOR Paperwork. Due on due Goal PHQ-9. Due on du e Goal AUTOMOTIVE INTERNET SALES CONSULTANT Scanned. Due on due Goal Hepatitis C scre ening. Due on due Goal Height. Due on d ue Goal Order Annual PT. Due on due Goal ALT (SGPT). Due on due Goal OARS. Due on due Goal Update Social Hi story. Due on due Goal Unhealthy drug u se screening. Due on due Goal UDT. Due on due Goal Review Allergy L ist. Due on due Goal AUTOMOTIVE INTERNET SALES CONSULTANT Scanned. Due on due Goal Hepatitis C scre ening. Due on due Goal Creatinine. Due on due Goal RADIO INTELLIGENCE OPERATOR Paperwork. Due on due Goal Lipid panel. Due on due Goal Height. Due on d ue Goal Tobacco Use. Due on due Goal PHQ-9. Due on du e Goal Medication Recon ciliation. Due on due Goal AST (SGOT). Due on due Goal HPV. Due on due Goal Weight. Due on d ue Goal RADIO INTELLIGENCE OPERATOR Paperwork. Due on due Goal AST (SGOT). Due on due Goal PHQ-9. Due on du e Goal Update Social Hi story. Due on due Goal OARS. Due on due Goal ALT (SGPT). Due on due Goal Tobacco Use. Due on due Goal AUTOMOTIVE INTERNET SALES CONSULTANT Scanned. Due on due Goal Height. Due on d ue Goal UDT. Due on due Goal Medication Recon ciliation. Due on due Goal Creatinine. Due on due Goal Review Allergy L ist. Due on due Goal Order Annual PT. Due on due Goal Weight. Due on d ue Goal Medication Recon ciliation. Due on due Goal RADIO INTELLIGENCE OPERATOR Paperwork. Due on due Goal AUTOMOTIVE INTERNET SALES CONSULTANT Scanned. Due on due Goal Order Annual PT. Due on due Goal PHQ-9. Due on du e Goal Creatinine. Due on due Goal Review Allergy L ist. Due on due Goal Height. Due on d ue Goal Tobacco Use. Due on due Goal AST (SGOT). Due on due Goal UDT. Due on due Goal ALT (SGPT). Due on due Goal OARS. Due on due Goal Weight. Due on d ue Goal Update Social Hi story. Due on due Goal RADIO INTELLIGENCE OPERATOR Paperwork. Due on due Goal Order Annual PT. Due on due Goal Creatinine. Due on due Goal AST (SGOT). Due on due Goal AUTOMOTIVE INTERNET SALES CONSULTANT Scanned. Due on due Goal UDT. Due on due Goal Weight. Due on d ue Goal Medication Recon ciliation. Due on due Goal Height. Due on d ue Goal OARS. Due on due Goal Tobacco Use. Due on due Goal Review Allergy L ist. Due on due Goal Update Social Hi story. Due on due Goal PHQ-9. Due on du e Goal ALT (SGPT). Due on due Goal Weight. Due on d ue Goal Height. Due on d ue Goal PHQ-9. Due on du e Goal Update Social Hi story. Due on due Goal Order Annual PT. Due on due Goal Tobacco Use. Due on due Goal Medication Recon ciliation. Due on due Goal Review Allergy L ist. Due on due Goal RADIO INTELLIGENCE OPERATOR Paperwork. Due on due Goal ALT (SGPT). Due on due Goal AUTOMOTIVE INTERNET SALES CONSULTANT Scanned. Due on due Goal AST (SGOT). Due on due Goal OARS. Due on due Goal UDT. Due on due Goal Creatinine. Due on due Goal Creatinine. Due on due Goal UDT. Due on due Goal Update Social Hi story. Due on due Goal Review Allergy L ist. Due on due Goal PHQ-9. Due on du e Goal AUTOMOTIVE INTERNET SALES CONSULTANT Scanned. Due on due Goal Height. Due on d ue Goal Order Annual PT. Due on due Goal Weight. Due on d ue Goal ALT (SGPT). Due on due Goal AST (SGOT). Due on due Goal OARS. Due on due Goal RADIO INTELLIGENCE OPERATOR Paperwork. Due on due Goal Medication Recon ciliation. Due on due Goal Tobacco Use. Due on due Goal Order Annual PT. Due on due Goal Creatinine. Due on due Goal PHQ-9. Due on du e Goal Review Allergy L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 lifting, sitting and housework. Symptoms are relieved by heat, massage, pain meds/drugs and chiropractic. low back pain (comments) Liz is here for a followup and medication refill. She presents with no medications- due out 05/26. Medications provide 80% relief from pain. States taking last norco at 3am this morning. Tramadol was forgotten at home and believes there are 6-8 tablets left- short. She no longer has insurance and was reason she did not come in before she ran out of medication. She has not been able to pursue RF workups d/t lack of insurance. Hoping to have insurance by June to start RF workups. low back pain (comments) Patient is here for follow-up. Patient has #24 Tramadol (surplus) and no Lamont remaining (3 days short). Reports taking more Lamont after falling 4 weeks ago. Post-fall pain resolved by chiropractic and massage. Medications provide 80% pain relief; denies any SE. Is going on a vacation to [facility]. low back pain Severity level i s 4-5. Duration: chronic. The problem is fluctuating. It occurs persistently. Location of pain is lower back. Symptoms are aggravated by lifting, lying/rest, sitting, standing, twisting and housework. Symptoms are relieved by heat, massage, pain meds/drugs, stretching, rest and chiropractic. low back pain Severity level i s 6. Duration: chronic. The problem is worsening. It occurs persistently. Location of pain is lower back.The patient describes the pain as burning. Symptoms are aggravated by bending, changing positions, lifting, running, sitting, standing, twisting and housework. Symptoms are relieved by massage, pain meds/drugs, physical therapy, heat and chiropractic. low back pain (comments) Patient is here for a follow-up and medication refill. Presents with #16 Tramadol - on track. Reports current medication regimen provides 80-90% pain relief. She would like to maintain current pain medication regimen unchanged. No other concerns today. low back pain Severity level i s 5. Duration: chronic. The problem is changing in character. It occurs persistently. Location of pain is lower back. Pain is radiated to the left ankle, left calf, left foot and left thigh.The patient describes the pain as sharp. Symptoms are relieved by heat, massage, pain meds/drugs, physical therapy, stretching and chiropractic. low back pain (comments) Liz is here for f/u and medication refill. Presents with #2 Lamont which is short and #12 tramadol which is appropriate. Discusses having some Lamont in her daily pill organizer. Reports 80% pain relief with medication regimen. She [facility] her [facility]. Has been working with the center which improves the pain. Pain flared for the last month and continues to radiate down the L leg to the L greater toe. low back pain Severity level i s 5-6. Duration: chronic. The problem is fluctuating. It occurs persistently. Location of pain is lower back.The patient describes the pain as burning. Symptoms are aggravated by lifting, running, standing, twisting, walking and stairs. Symptoms are relieved by heat, massage, pain meds/drugs and stretching. low back pain (comments) Evon ellison s here for f/u and medication refill. She presents without medications and was due out a few weeks ago. Patient reports she took her last dose of medication about one week ago. She reports upon waking she experiences numbness and tingling in the the right lower leg; pain extends from lateral calf to greater toe. Numbness resolves with some activity. 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 Reports more activity and lifting to prepare for business opening. low back pain (comments) Evon ellison s here for f/u and medication refill. She presents without medications and was due out on 06/21/2015. She took her last dose of tramadol yesterday and Lamont about 3 days ago. She stretched her medications due to lack of insurance. Axial low back pain continues unchanged. Patient plans for the upcoming opening of her shop. low back pain Severity level i s 5. Duration: chronic. The problem is fluctuating. Location of pain is lower back.The patient describes the pain as burning and sharp. Symptoms are aggravated by bending, sitting and standing. Symptoms are relieved by exercise, heat and ice. low back pain Severity level i s 5. Duration: chronic. The problem is stable. It occurs persistently. Location of pain is lower back.The patient describes the pain as burning. Symptoms are aggravated by bending, lifting, sitting and standing. Symptoms are relieved by exercise, heat and ice. Additional information: Evon has 19 norco and 34 tramadol left. Gets significant pain relief from her medication regimen. low back pain (comments) Reports her LBP flared for a few days a couple weeks ago. 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 Denies radicular symptoms. Back Pain (comments) Patient is on track with medication, #7 norco and #26 tramadol remaining. She also has some tabs remaining at work. She reports her back pain has been slightly worse this month. 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 She denies any radicular pain. She tried ESIs at [facility] in the past with no lasting relief. Back Pain Severity level i s 5. Duration: chronic. The problem is fluctuating. It occurs persistently. Location of pain is lower back.The patient describes the pain as sharp. Symptoms are aggravated by lying/rest, sitting, standing, walking and prolonged positioning. Symptoms are relieved by exercise, heat, pain meds/drugs and topical medications. Back Pain Severity level i s 5. Duration: chronic. The problem is stable. It occurs persistently. Location of pain is lower back.There is no radiation of pain. The patient describes the pain as an ache and burning. Symptoms are aggravated by lying/rest, sitting and standing. Symptoms are relieved by heat, pain meds/drugs, stretching and traction. Additional information: Eovn has 56 tramadol and 15 norco which is on track. Medrol helped get pain back to baseline. Notes less R elbow pain with use of band. Back Pain (comments) She has 4 n orco and 31 tramadol left. She admits to taking extra norco when her pain pain flared but is now back to taking 2/day. She is 6 tabs short. Denies radicular sx. Saw PCP regarding RUE pain and had xray of her elbow. Back Pain Severity level i s 5. Duration: chronic. The problem is changing in character. It occurs persistently. Location of pain is lower back.The patient describes the pain as sharp. Symptoms are aggravated by lifting, sitting and standing. Symptoms are relieved by lying down, pain meds/drugs and stretching. Additional information: Turned a few weeks ago and has had an increased sharp pain in R low back since. Wants to do PT but has had trouble finding a clinic that takes her insurance. Back Pain Severity level i s 6. Duration: chronic. The problem is fluctuating. It occurs persistently. Location of pain is lower back.The patient describes the pain as sharp. Symptoms are aggravated by sitting and standing. Symptoms are relieved by stretching. Additional information: Here for med refill. She has 34 tramadol and 10 norco left which is a small surplus. Reports a couple episodes of her R arm and R leg feeling numb and cold for about 5 minutes. Back Pain Severity level i s 5. Duration: chronic. The problem is fluctuating. It occurs persistently. Location of pain is lower back.There is no radiation of pain. The patient describes the pain as burning and sharp. Symptoms are aggravated by lifting, sitting and standing. Symptoms are relieved by exercise, heat, ice and pain meds/drugs. 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 She has 28 tramadol and 4 norco left. Reports B hand pain due to arthritis and is wondering about treatment options. Back Pain Severity level i s 5. Duration: chronic. The problem is fluctuating. It occurs persistently. Location of pain is lower back.There is no radiation of pain. The patient describes the pain as an ache and burning. Symptoms are aggravated by lifting, sitting, standing and walking. Symptoms are relieved by heat, ice, massage and stretching. Additional information: Evon has 1 norco left which is on track. She is going to [place] for vacation tomorrow. No new concerns. Had short flare of LBP but that resolved. Back Pain Severity level i s 6. Duration: chronic. The problem is stable. It occurs persistently. Location of pain is lower back.There is no radiation of pain. The patient describes the pain as an ache and burning. Symptoms are aggravated by bending, sitting and standing. Symptoms are relieved by heat, ice, pain meds/drugs and stretching. Additional information: Here for med refill. She has 19 tramadol and 4 norco left. Lost PT order so is requesting a copy. No new issues. general orthopedic Pt did not re turn for further follow up to PT. Back Pain Severity level i s 5. Duration: chronic. The problem is fluctuating. It occurs persistently. Location of pain is lower back.There is no radiation of pain. The patient describes the pain as an ache and burning. Symptoms are aggravated by bending, sitting and standing. Symptoms are relieved by heat, pain meds/drugs and stretching. Additional information: Liz has 11 tramadol and 2 norco left. Reports a different sensation in her low back x 1 month but no new symptoms. No radicular sx. Pain stable on medication regimen. Functional Status Date Functional Assessmen t No Information Instructions Date Instruction Additional Infor josh Continue current medication Medications counted, patient is on track. Continue current medication Continue current medication Medications counted, patient is on track. Continue current medication Continue current medication Depression Screen Oswestry Score Assessments Type Assessment Date No Information Patient Care Teams Name Effective Dates (start - stop) Status Members No Information
--- OUTSIDE RECORDS SUMMARY | 2022-08-16 12:44 | XMS_ITS | Continuity of Care Document ---
Author Name Unknown Organization [facility] Address [address] [place] [address] Phone Care Team Providers Care Head Of Operation And Logistics Name Role Phone Van Blanton MD Unavailable [...] Available - Active Procedures Procedure Date Office/Outpatient Visit,[facility]outpatient visit,[facility] 2010 Advance Directives Directive Yes / No Effective Date File Name No Information Encounters Encounter Description Practice Location Reason(s) For Visit Diagnoses Date Provider Providers Copied on Encounter Office/Outpa tient Visit,[facility], [address], [place], [place], [id number], [place] tel:[phone] [facility] Other intervertebral disc degeneration, lumbar region 0 Transfeldt Ensor. [facility] [place], [facility] [address] [place] [address], [facility] [address], [place], [place], [id number], [place]. tel:[phone] Referring Provider: Brent Carmona, [facility] [address] [place], [address]. tel:[phone] Office/outpa tient visit,[facility] [place], [address], [place], [address], [place] tel:[phone] [facility] No Information 1 Deacarmen Plasencia. [facility], [address], [place], [place], [id number], [place]. tel:[phone] Family History Family Member Type Diagnosis Age At Onset No Information Payers Payer name Insurance type Covered libertarian ID Authoriza tion(s) No Information Social History [...]
--- OUTSIDE RECORDS SUMMARY | 2022-08-16 12:44 | XMS_ITS | Continuity of Care Document ---
Author Name Unknown Organization [facility] kylah Address [address] [facility] [place] [address] Phone Care Team Providers Care Swamper Name Role Phone Charleen Lopez CNP Unavailable [...] Diagnoses Date Provider Providers Copied on Encounter [facility], [address], [place], [id number] , [place] tel: [phone] [facility] [place] No Information 3 John Moseley [address] [place], [place], [id number], [place]. tel:[phone] [facility], [address], [place], [id number] , [place] tel: [phone] [facility] [place] No Information 3 John Moseley [address] [place] [address], [id number], [place]. tel:[phone] [facility], [address] [place] [address], [id number] , [place] tel:[phone] [facility] [place] No Information 3 Yang Don. [address] [place] [address], [id number], [place]. tel:[phone] OFFICE VISIT, EST TELEMEDICINE [facility], [address] [place] [address], [id number] , [place] tel:[phone] [facility] low back pain (chief complaint) Other spondylosis, lumbar regionOther intervertebral disc degeneration, lumbosacral regionPain in unspecified lower legLong term (current) use of opiate analgesic 3 Yang Don. [address] [place] [address], [id number], [place]. tel:[phone] Referring Provider: Arian Purvis, [address] [place] [address], [address] . tel:[phone] [facility], [address] [place] [address], [id number] , [place] tel:[phone] [facility] No Information 3 John Villaseñor. [address] [place] [address], [id number], [place]. tel:[phone] Referring Provider: Arian Purvis, [address] [place] [address], [address] . tel:[phone] OFFICE/OUTPAT IENT VISIT, EST [facility], [address] [place] [address], [id number] , [place] [phone] [facility] low back pain (chief complaint) Other spondylosis, lumbar regionOther intervertebral disc degeneration, lumbosacral regionPain in unspecified lower legLong term (current) use of opiate analgesicEncou nter for therapeutic drug level monitoring 3 John Villaseñor. [address] [place] [address], [id number], [place]. tel:[phone] Referring Provider: Arian Purvis, [address] [place], [place] [address], [address] . tel:[phone] OFFICE VISIT, [facility], [address] [place] [address], [id number] , [place] [phone] [facility] low back pain (chief complaint) Other spondylosis, lumbar regionOther intervertebral disc degeneration, lumbosacral regionPain in unspecified lower legLong term (current) use of opiate analgesic 3 Krenzer Charleen. [address] [place] [address], [id number], [place]. tel:[phone] Referring Provider: Arian Purvis, [address] [place] [address], [address] . tel:[phone] OFFICE/OUTPAT IENT VISIT, [facility], [address] [place] [address], [id number] , [place] [phone] [facility] low back pain (chief complaint) Other intervertebral disc degeneration, lumbosacral regionPain in unspecified lower legLong term (current) use of opiate analgesicOther spondylosis, lumbar region 2 Krenzer Charleen. [address] [place] [address], [id number], [place]. tel:[phone] Referring Provider: Arian Purvis, [address] [place] [address] [place], [address] . tel:[phone] OFFICE VISIT, [facility], [address] [place] [address], [id number] , [place] [phone] [facility] low back pain (chief complaint) Other intervertebral disc degeneration, lumbosacral regionPain in unspecified lower legLong term (current) use of opiate analgesic 2 Krenzer Charleen. [address] [place] [address], [id number], [place]. tel:[phone] OFFICE/OUTPAT IENT VISIT, EST [facility], [address] [place] [address], [id number] , [place] tel:[phone] [facility] [place] low back pain (chief complaint) Other intervertebral disc degeneration, lumbosacral regionPain in unspecified lower legLong term (current) use of opiate analgesicEncou nter for therapeutic drug level monitoring 2 John Villaseñor. [address] [place] [address], [id number], [place]. tel:[phone] Referring Provider: Arian Purvis, [address] [place] [address], [address] . tel:[phone] [facility], [address] [place] [address], [id number] , [place] tel:[phone] [facility] [place] No Information 2 John Villaseñor. [address] [place] [address], [id number], [place]. tel:[phone] Referring Provider: Arian Purvis, [address] [place] [address], [address] . tel:[phone] OFFICE VISIT, [facility], [address] [place] [address], [id number] , [place] tel:[phone] [facility] low back pain (chief complaint) Other intervertebral disc degeneration, lumbosacral regionPain in unspecified lower legLong term (current) use of opiate analgesic 2 John Villaseñor. [address] [place] [address], [id number], [place]. tel:[phone] OFFICE VISIT, EST TELEMEDICINE [facility], [address] [place] [address], [id number] , [place] tel:[phone] [facility] [place] low back pain (chief complaint) Other intervertebral disc degeneration, lumbosacral regionPain in unspecified lower legLong term (current) use of opiate analgesic 2 John Villaseñor. [address] [place] [address], [id number], [place]. tel:[phone] Referring Provider: Arian Purvis, [address] [place], [place] [address], [address] . tel:[phone] [facility], [address] [place] [address], [id number] , [place] tel:[phone] [facility] Intervertebral disc disorders with radiculopathy, lumbar region Apr-2 2 Alpanzer Charleen. [address] [place] [address], [id number], [place]. tel:[phone] [facility], [address] [place] [address], [id number] , [place] tel:[phone] [facility] No Information 2 Aubreezer Charleen. [address] [place] [address], [id number], [place]. tel:[phone] Referring Provider: Arian Purvis, [address] [place], [place] [address], [address] . tel:[phone] OFFICE/OUTPAT IENT VISIT, EST [facility], [address] [place] [address], [id number] , [place] tel:[phone] [facility] low back pain (chief complaint) alf (current) use of opiate analgesicPain in unspecified lower legOther intervertebral disc degeneration, lumbosacral regionEncounte r for therapeutic drug level monitoringEnco unter for screening for other disorder 2 Aubreezer Charleen. [address] [place] [address], [id number], [place]. tel:[phone] Referring Provider: Arian Purvis, [address] [place], [place] [address], [address] . tel:[phone] OFFICE VISIT, EST TELEMEDICINE [facility], [address] [place] [address], [id number] , [place] tel:[phone] [facility] low back pain (chief complaint) intermediate project manager (current) use of opiate analgesicPain in unspecified lower legOther intervertebral disc degeneration, lumbosacral region 1 John Charleen. [address] [place] [address], [id number], [place]. tel:[phone] OFFICE VISIT, [facility] TELEMEDICINE [facility], [address] [place] [address], [id number] , [place] [phone] [facility] [place] low back pain (chief complaint) intermediate project manager (current) use of opiate analgesicPain in unspecified lower legOther intervertebral disc degeneration, lumbosacral region 1 John Charleen. [address] [place] [address], [id number], [place]. tel:[phone] [facility], [address] [place] [address], [id number] , [place] [phone] [facility] No Information 1 John Villaseñor. [address] [place] [address], [id number], [place]. tel:[phone] Referring Provider: Arian Purvis, [address] [place], [place] [address], [address] . tel:[phone] OFFICE/OUTPAT IENT VISIT, [facility], [address] [place] [address], [id number] , [place] [phone] [facility] low back pain (chief complaint) intermediate project manager (current) use of opiate analgesicPain in unspecified lower legOther intervertebral disc degeneration, lumbosacral regionEncounte r for screening for other disorderEncoun ter for therapeutic drug level monitoring 1 John Villaseñor. [address] [place] [address], [id number], [place]. tel:[phone] Referring Provider: Arian Purvis, [address] [place], [place] [address], [address] . tel:[phone] OFFICE VISIT, [facility], [address] [place] [address], [id number] , [place] tel:[phone] [facility] low back pain (chief complaint) intermediate project manager (current) use of opiate analgesicPain in unspecified lower legOther intervertebral disc degeneration, lumbosacral region 1 John Charleen. [address] [place] [address], [id number], [place]. tel:[phone] Referring Provider: Arian Purvis, [address] [place], [place] [address], [address] . tel:[phone] OFFICE VISIT, EST TELEMEDICINE [facility], [address] [place] [address], [id number] , [place] tel:[phone] [facility] [place] low back pain (chief complaint) intermediate project manager (current) use of opiate analgesicPain in unspecified lower legOther intervertebral disc degeneration, lumbosacral region 1 John Charleen. [address] [place] [address], [id number], [place]. tel:[phone] Referring Provider: Arian Purvis, [address] [place] [address] [place], [address] . tel:[phone] OFFICE VISIT, EST TELEMEDICINE [facility], [address] [place] [address], [id number] , [place] tel:[phone] [facility] low back pain (chief complaint) alf (current) use of opiate analgesicPain in unspecified lower legOther intervertebral disc degeneration, lumbosacral region 1 John CharleenPablo [address] [place] [address], [id number], [place]. tel:[phone] Referring Provider: Arian Purvis, [address] [place] [address] [facility] [place], [address] . tel:[phone] OFFICE VISIT, EST TELEMEDICINE [facility], [address] [place] [address], [id number] , [place] tel:[phone] [facility] [place] low back pain (chief complaint) alf (current) use of opiate analgesicPain in unspecified lower legOther intervertebral disc degeneration, lumbosacral region 1 Krenzer Charleen. [address] [place] [address], [id number], [place]. tel:[phone] Referring Provider: Arian Purvis, [address] [place] [address] [place], [address] . tel:[phone] OFFICE VISIT, [facility], [address] [place] [address], [id number] , [place] [phone] [facility] low back pain (chief complaint) alf (current) use of opiate analgesicPain in unspecified lower legOther intervertebral disc degeneration, lumbosacral region Dec-0 8-202 0 Krenzer Charleen. [address] [place] [address], [id number], [place]. tel:[phone] Referring Provider: Arian Purvis, [address] [place], [place] [address], [address] . tel:[phone] OFFICE VISIT, [facility], [address] [place] [address], [id number] , [place] [phone] [facility] low back pain (chief complaint) alf (current) use of opiate analgesicPain in unspecified lower legOther intervertebral disc degeneration, lumbosacral region Nov-0 9-202 0 Krenzer Charleen. [address] [place] [address], [id number], [place]. tel:[phone] Referring Provider: Arian Purvis, [address] [place], [place] [address], [address] . tel:[phone] OFFICE VISIT, [facility], [address] [place] [address], [id number] , [place] [phone] [facility] ([facility]) Pain in unspecified lower legOther intervertebral disc degeneration, lumbosacral regionLong term (current) use of opiate analgesic Sep-1 0-202 0 Krenzer Charleen. [address] [place] [address], [id number], [place]. tel:[phone] Referring Provider: Arian Purvis, [address] [place], [place] [address], [address] . tel:[phone] OFFICE VISIT, [facility], [address] [place] [address], [id number] , [place] tel:[phone] [facility] low back pain (chief complaint) Pain in unspecified lower legOther intervertebral disc degeneration, lumbosacral regionLong term (current) use of opiate analgesic Aug-2 8202 0 Krenzer Charleen. [address] [place] [address], [id number], [place]. tel:[phone] Referring Provider: Arian Purvis, [address] [place], [place] [address], [address] . tel:[phone] OFFICE VISIT, [facility], [address] [place] [address], [id number] , [place] tel:[phone] [facility] low back pain (chief complaint) alf (current) use of opiate analgesicOther intervertebral disc degeneration, lumbosacral regionPain in unspecified lower leg Aug-0 2202 0 Luke Rodriguez. [address] [place] [address], [id number], [place]. tel:[phone] Referring Provider: Arian Purvis, [address] [place], [place] [address], [address] . tel:[phone] OFFICE/OUTPAT IENT VISIT, [facility], [address] [place] [address], [id number] , [place] tel:[phone] [facility] low back pain (chief complaint) Pain in unspecified lower legOther intervertebral disc degeneration, lumbosacral regionLong term (current) use of opiate analgesic Jul-0 2202 0 Krenzer Charleen. [address] [place] [address], [id number], [place]. tel:[phone] Referring Provider: Arian Purvis, [address] [place], [place] [address], [address] . tel:[phone] OFFICE VISIT, [facility], [address] [place] [address], [id number] , [place] tel:[phone] [facility] low back pain (chief complaint) Other intervertebral disc degeneration, lumbosacral regionPain in unspecified lower legLong term (current) use of opiate analgesic Apr-3 0-202 0 John Villaseñor. [address] [place] [address], [id number], [place]. tel:[phone] Referring Provider: Arian Purvis, [address] [place] [address] [facility] [place], [address] . tel:[phone] OFFICE VISIT, [facility], [address] [place] [address], [id number] , [place] [phone] [facility] low [facility] pain (chief complaint) Other intervertebral disc degeneration, lumbosacral regionPain in unspecified lower legLong term (current) use of opiate analgesic Mar-2 - 0 John Villaseñor. [address] [place] [address], [id number], [place]. tel:[phone] Referring Provider: Arian Purvis, [address] [place] [address] [place], [address] . tel:[phone] OFFICE/OUTPAT IENT VISIT, [facility], [address] [place] [address], [id number] , [place] [phone] [facility] low back pain (chief complaint) Other intervertebral disc degeneration, lumbosacral regionPain in unspecified lower legLong term (current) use of opiate analgesicEncou nter for screening for other disorder Apr-0 0 John Villaseñor. [address] [place] [address], [id number], [place]. tel:[phone] Referring Provider: Arian Puvris, [address] [place] [address] [place], [address] . tel:[phone] OFFICE VISIT, [facility], [address] [place] [address], [id number] , [place] tel:[phone] [facility] low back pain (chief complaint) Other intervertebral disc degeneration, lumbosacral regionPain in unspecified lower legLong term (current) use of opiate analgesic Feb-0 - 0 Alpanzer Charleen. [address] [place], [place], [id number], [place]. tel:[phone] OFFICE/OUTPAT IENT VISIT, [facility], [address] [place] [address], [id number] , [place] [phone] [facility] low back pain (chief complaint) Other intervertebral disc degeneration, lumbosacral regionPain in unspecified lower legLong term (current) use of opiate analgesic Feb-0 0 Krenzer Charleen. [address] [place] [address], [id number], [place]. tel:[phone] Referring Provider: Arian Purvis, [address] [place] [address] [place], [address] . tel:[phone] OFFICE/OUTPAT IENT VISIT, [facility], [address] [place] [address], [id number] , [place] tel:[phone] [facility] low back pain (chief complaint) Other intervertebral disc degeneration, lumbosacral regionLong term (current) use of opiate analgesicPain in unspecified lower legEncounter for therapeutic drug level monitoring 0 9 [facility]. [address], [place], [id number], [place]. tel:[phone] Referring Provider: Arian Purvis, [place], [address] . tel:[phone] OFFICE/OUTPAT IENT VISIT, [facility], [address] [place] [address], [id number] , [place] tel:[phone] [facility] low back pain (chief complaint) Other intervertebral disc degeneration, lumbosacral regionLong term (current) use of opiate analgesicPain in unspecified lower leg Nov-0 6 9 [facility]. [address] [facility] [address], [place], [place], [id number], [place]. tel:[phone] Referring Provider: Arian Purvis, [address] [place] [address], [address] . tel:[phone] OFFICE/OUTPAT IENT VISIT, [facility], [address] [place] [address], [id number] , [place] tel:[phone] [facility] low back pain (chief complaint) Other intervertebral disc degeneration, lumbosacral regionLong term (current) use of opiate analgesic Sep-2 9 Krenzer Charleen. [address] [place] [address], [id number], [place]. tel:[phone] Referring Provider: Arian Purvis, [address] [place] [address] [facility] [place], [address] . tel:[phone] OFFICE/OUTPAT IENT VISIT, [facility], [address] [place] [address], [id number] , [place] tel:[phone] [facility] low back pain (chief complaint) Other intervertebral disc degeneration, lumbosacral regionLong term (current) use of opiate analgesic Aug-2 9 Krenzer Charleen. [address] [place] [address], [id number], [place]. tel:[phone] Referring Provider: Arian Purvis, [address] [place] [address], [address] . [phone] [facility], [address] [place] [address], [id number] , [place] tel:[phone] [facility] low back pain (chief complaint) Other intervertebral disc degeneration, lumbosacral regionLong term (current) use of opiate analgesic Aug-2 9 Krenzer Charleen. [address] [place] [address], [id number], [place]. tel:[phone] Referring Provider: Arian Purvis, [address] [place] [address] [place], [address] . tel:[phone] OFFICE/OUTPAT IENT VISIT, [facility], [address] [place] [address], [id number] , [place] tel:[phone] [facility] low back pain (chief complaint) Other intervertebral disc degeneration, lumbosacral regionLong term (current) use of opiate analgesicEncou nter for therapeutic drug level monitoring John Moseley [address] [place] [address], [id number], [place]. tel:[phone] Referring Provider: Arian Purvis, [address] [place], [place] [address], [address] . tel:[phone] OFFICE/OUTPAT IENT VISIT, [facility], [address] [place] [address], [id number] , [place] tel:[phone] [facility] low back pain (chief complaint) Other intervertebral disc degeneration, lumbosacral regionLong term (current) use of opiate analgesic John Moseley [address] [place] [address], [id number], [place]. tel:[phone] Referring Provider: Arian Purvis, [address] [place], [place] [address], [address] . tel:[phone] OFFICE/OUTPAT IENT VISIT, [facility], [address] [place] [address], [id number] , [place] tel:[phone] [facility] low back pain (chief complaint) Other intervertebral disc degeneration, lumbosacral regionLong term (current) use of opiate analgesic John Moseley [address] [place] [address], [id number], [place]. tel:[phone] Referring Provider: Arian Purvis, [address] [place], [place] [address], [address] . tel:[phone] OFFICE/OUTPAT IENT VISIT, [facility], [address] [place] [address], [id number] , [place] [phone] [facility] low back pain (chief complaint) Other intervertebral disc degeneration, lumbosacral region [place]- 9 John Villaseñor. [address] [place] [address], [id number], [place]. tel:[phone] Referring Provider: Arian Purvis, [address] [place], [place] [address], [address] . tel:[phone] OFFICE/OUTPAT IENT VISIT, [facility], [address] [place] [address], [id number] , [place] [phone] [facility] low back pain (chief complaint) Other intervertebral disc degeneration, lumbosacral regionLong term (current) use of opiate analgesic Nov-0 8 John Villaseñor. [address] [place] [address], [id number], [place]. tel:[phone] Referring Provider: Arian Purvis, [address] [place], [place] [address], [address] . tel:[phone] OFFICE/OUTPAT IENT VISIT, [facility], [address] [place] [address], [id number] , [place] [phone] [facility] low back pain (chief complaint) Other intervertebral disc degeneration, lumbosacral regionLong term (current) use of opiate analgesic Sep-0 8 Luke Rodriguez. [address] [place] [address], [id number], [place]. tel:[phone] Referring Provider: Arian Purvis, [address] [place], [place] [address], [address] . tel:[phone] OFFICE/OUTPAT IENT VISIT, [facility], [address] [place] [address], [id number] , [place] tel:[phone] [facility] low back pain (chief complaint) Other intervertebral disc degeneration, lumbosacral region Blaze-0 2 8 John Villaseñor. [address] [place] [address], [id number], [place]. tel:[phone] Referring Provider: Arian Purvis, [address] [place] [address], [place], [address] . tel:[phone] OFFICE/OUTPAT IENT VISIT, [facility], [address] [place] [address], [id number] , [place] tel:[phone] [id number] [facility] low back pain (chief complaint) Other intervertebral disc degeneration, lumbosacral regionLong term (current) use of opiate analgesic May-0 3-201 8 Krenzer Charleen. [address] [place] [address], [id number], [place]. [phone] Referring Provider: Arian Purvis, [address] [place] [address], [address] . tel:[phone] OFFICE/OUTPAT IENT VISIT, [facility], [address] [place] [address], [id number] , [place] tel:[phone] [facility] low back pain (chief complaint) Other intervertebral disc degeneration, lumbosacral regionLong term (current) use of opiate analgesic Mar-0 7-201 8 Krenzer Charleen. [address] [place] [address], [id number], [place]. [phone] Referring Provider: Arian Purvis, [address] [place] [address], [address] . tel:[phone] OFFICE/OUTPAT IENT VISIT, [facility], [address] [place] [address], [id number] , [place] tel:[phone] [facility] low back pain (chief complaint) Other intervertebral disc degeneration, lumbosacral region 0-201 8 Krenzer Charleen. [address] [place] [address], [id number], [place]. tel:[phone] Referring Provider: Arian Purvis, [address] [place] [address], [address] . tel:[phone] OFFICE/OUTPAT IENT VISIT, [facility], [address] [place] [address], [id number] , [place] tel:[phone] [facility] low back pain (chief complaint) Other intervertebral disc degeneration, lumbosacral region 7 Aubreezer Charleen. [address] [place] [address], [id number], [place]. tel:[phone] Referring Provider: Arian Purvis, [address] [place] [address], [address] . tel:[phone] OFFICE/OUTPAT IENT VISIT, [facility], [address] [place] [address], [id number] , [place] tel:[phone] [facility] low back pain (chief complaint) Other intervertebral disc degeneration, lumbosacral region 7 John Charleen. [address] [place] [address], [id number], [place]. tel:[phone] Referring Provider: Arian Purvis, [address] [place] [address], [address] . tel:[phone] OFFICE/OUTPAT IENT VISIT, [facility], [address] [place] [address], [id number] , [place] tel:[phone] [facility] low back pain (chief complaint) Other intervertebral disc degeneration, lumbosacral regionLong term (current) use of opiate analgesic 7 John Villaseñor. [address] [place] [address], [id number], [place]. tel:[phone] Referring Provider: Arian Purvis, [address] [place] [address], [address] . tel:[phone] OFFICE/OUTPAT IENT VISIT, [facility], [address] [place] [address], [id number] , [place] tel:[phone] [facility] low back pain (chief complaint) Other intervertebral disc degeneration, lumbosacral region 2-201 7 John Villaseñor. [address] [place] [address], [id number], [place]. tel:[phone] Referring Provider: Arian Purvis, [address] [place], [place] [address], [address] . tel:[phone] OFFICE/OUTPAT IENT VISIT, [facility], [address] [place] [address], [id number] , [place] [phone] [facility] low back pain (chief complaint) Other intervertebral disc degeneration, lumbosacral region 7 Krenzer Charleen. [address] [place] [address], [id number], [place]. tel:[phone] Referring Provider: Arian Purvis, [address] [place] [address] [place], [address] . tel:[phone] OFFICE/OUTPAT IENT VISIT, [facility], [address] [place] [address], [id number] , [place] tel:[phone] [facility] low back pain (chief complaint) Other intervertebral disc degeneration, lumbosacral region 6 Krenzer Charleen. [address] [place] [address], [id number], [place]. tel:[phone] Referring Provider: Arian Purvis, [address] [place], [place] [address], [address] . tel:[phone] OFFICE/OUTPAT IENT VISIT, [facility], [address] [place] [address], [id number] , [place] tel:[phone] [facility] low back pain (chief complaint) Other intervertebral disc degeneration, lumbosacral regionLong term (current) use of opiate analgesic 6 Krenzer Charleen. [address] [place] [address], [id number], [place]. tel:[phone] Referring Provider: Arian Purvis, [address] [place], [place] [address], [address] . tel:[phone] OFFICE/OUTPAT IENT VISIT, [facility], [address] [place] [address], [id number] , [place] tel:[phone] [facility] low back pain (chief complaint) Other intervertebral disc degeneration, lumbosacral region 6 Krenzer Charleen. [address] [place] [address], [id number], [place]. tel:[phone] Referring Provider: Arian Purvis, [address] [place] [address] [place], [address] . tel:[phone] OFFICE/OUTPAT IENT VISIT, [facility], [address] [place] [address], [id number] , [place] tel:[phone] [facility] low back pain (chief complaint) Other intervertebral disc degeneration, lumbosacral region 6 Krenzer Charleen. [address] [place] [address], [id number], [place]. tel:[phone] Referring Provider: Arian Purvis, [address] [place] [address], [address] . tel:[phone] OFFICE/OUTPAT IENT VISIT, [facility], [address] [place] [address], [id number] , [place] tel:[phone] [facility] low back pain (chief complaint) Other intervertebral disc degeneration, lumbosacral region 3-201 6 Krenzer Charleen. [address] [place] [address], [id number], [place]. tel:[phone] Referring Provider: Arian Purvis, [address] [place] [address], [address] . tel:[phone] OFFICE/OUTPAT IENT VISIT, [facility], [address] [place] [address], [id number] , [place] tel:[phone] [facility] Back Pain (chief complaint) Other intervertebral disc degeneration, lumbosacral region 0 6-201 6 Krenzer Charleen. [address] [place] [address], [id number], [place]. tel:[phone] Referring Provider: Arian Purvis, [address] [place] [address], [address] . 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 [address] [place] [address], [id number], [place]. tel:[phone] OFFICE/OUTPAT IENT VISIT, [facility], [address] [place] [address], [id number] , [place] tel:[phone] [facility] [place] Back Pain (chief complaint) Other intervertebral disc degeneration, lumbosacral region Dec-0 5-201 5 Krenzer Charleen. [address] [place] [address], [id number], [place]. tel:[phone] Referring Provider: Arian Purvis, [address] [place] [address], [address] . tel:[phone] OFFICE/OUTPAT IENT VISIT, [facility], [address] [place] [address], [id number] , [place] tel:[phone] [facility] [place] Back Pain (chief complaint) Other intervertebral disc degeneration, lumbosacral region Nov-0 8-201 5 Krenzer Charleen. [address] [place] [address], [id number], [place]. tel:[phone] Referring Provider: Arian Purvis, [address] [place] [address], [address] . tel:[phone] OFFICE/OUTPAT IENT VISIT, [facility], [address] [place] [address], [id number] , [place] [phone] [facility] [place] Back Pain (chief complaint) Degeneration of lumbar or lumbosacral intervertebral disc 3-201 5 Krenzer Charleen. [address] [place] [address], [id number], [place]. tel:[phone] Referring Provider: Arian Purvis, [address] [place], [place] [address], [address] . tel:[phone] OFFICE/OUTPAT IENT VISIT, [facility], [address] [place] [address], [id number] , [place] tel:[phone] [facility] [place] Back Pain (chief complaint) Degeneration of lumbar or lumbosacral intervertebral disc Gene- 5 Krenzer Charleen. [address] [place] [address], [id number], [place]. [phone] Referring Provider: Arian Purvis, [address] [place] [address] [place], [address] . tel:[phone] OFFICE/OUTPAT IENT VISIT, [facility], [address] [place] [address], [id number] , [place] tel:[phone] [facility] Back Pain (chief complaint) Degeneration of lumbar or lumbosacral intervertebral disc May- 5 5 Krenzer Charleen. [address] [place] [address], [id number], [place]. [phone] Referring Provider: Arian Purvis, [address] [place], [place] [address], [address] . tel:[phone] OFFICE/OUTPAT IENT VISIT, [facility], [address] [place] [address], [id number] , [place] tel:[phone] [facility] Back Pain (chief complaint) Degeneration of lumbar or lumbosacral intervertebral disc Fe- 2 5 Krenzer Charleen. [address] [place] [address], [id number], [place]. tel:[phone] Referring Provider: Arian Purvis, [address] [place], [place] [address], [address] . tel:[phone] [facility], [address] [place] [address], [id number] , [place] tel:[phone] [facility] Current use of a medication Feb-1 1-201 5 John Villaseñor. [address] [place] [address], [id number], [place]. [phone] [facility], [address] [place] [address], [id number] , [place] tel: [phone] [facility] general orthopedic (chief complaint) Lumbago No Information OFFICE/OUTPAT IENT VISIT, [facility], [address] [place] [address], [id number] , [place] tel: [phone] [facility] Back Pain (chief complaint) Degeneration of lumbar or lumbosacral intervertebral disc 4 John Villaseñor. [address] [place] [address], [id number], [place]. [phone] Referring Provider: Arian Purvis, [address] [place] [address] [place], [address] . tel:[phone] OFFICE/OUTPAT IENT VISIT, [facility], [address] [place] [address], [id number] , [place] tel: [phone] [facility] low back pain (chief complaint) LumbagoDegener ation of lumbar or lumbosacral intervertebral disc 4 John Villaseñor. [address] [place] [address], [id number], [place]. [phone] Referring Provider: Arian Purvis, [address] [place] [address] [place], [address] . tel:[phone] [facility], [address] [place] [address], [id number] , [place] tel: [phone] [facility] [place] No Information No Information Referring Provider: Arian Purvis, [address] [place] [address] [place], [address] . [phone] [facility], [address] [place] [address], [id number] , [place] tel: [phone] [facility] [place] No Information 4 Will Arian. [address] [place] [address], [id number], [place]. tel:[phone] Referring Provider: Arian Purvis, [address] [place] [address], [address] . tel:[phone] [facility], [address] [place] [address], [id number] , [phone] [facility] [place] back pain (chief complaint) No Information 4 Will Arian. [address] [place] [address], [id number], [place]. tel:[phone] Referring Provider: Arian Purvis, [address] [place] [address], [address] . tel:[phone] OFFICE/OUTPAT IENT VISIT, [facility], [address] [place] [address], [id number] , [place] tel:[phone] [facility] low back pain (chief complaint) Degeneration of lumbar or lumbosacral intervertebral disc 4 John Villaseñor. [address] [place] [address], [id number], [place]. tel:[phone] Referring Provider: Arian Purvis, [address] [place] [address], [address] . tel:[phone] [facility], [address] [place] [address], [id number] , [place] tel:[phone] [facility] [place] back pain (chief complaint) No Information 4 Will Arian. [address] [place] [address], [id number], [place]. tel:[phone] Referring Provider: Arian Purvis, [address] [place] [address], [address] . tel:[phone] [facility], [address] [place] [address], [id number] , [place] tel:[phone] [facility] [place] back pain (chief complaint) No Information 4 Dain Don. [address] [place] [address], [id number], [place]. tel:[phone] Referring Provider: Arian Purvis, [address] [place] [address], [address] . tel:[phone] OFFICE/OUTPAT IENT VISIT, [facility], [address] [place] [address], [id number] , [place] tel:[phone] [facility] [place] low back pain (chief complaint) Degeneration of lumbar or lumbosacral intervertebral disc 4 John Villaseñor. [address] [place] [address], [id number], [place]. tel:[phone] Referring Provider: Arian Purvis, [address] [place] [address], [address] . tel:[phone] [facility], [address] [place] [address], [id number] , [place] tel:[phone] [facility] [place] back pain (chief complaint) No Information 4 John Villaseñor. [address] [place] [address], [id number], [place]. tel:[phone] Referring Provider: Arian Purvis, [address] [place] [address], [address] . tel:[phone] [facility], [address] [place] [address], [id number] , [place] tel:[phone] [facility] [place] Degeneration of lumbar or lumbosacral intervertebral disc 4 Diana ePna. [address] [place] [address], [id number], [place]. tel:[phone] Referring Provider: Arian Purvis, [address] [place] [address], [address] . tel:[phone] OFFICE/OUTPAT IENT VISIT, [facility], [address] [place] [address], [id number] , tel:[phone] [facility] [place] low back pain (chief complaint) Lumbago 4-201 4 John Villaseñor. [address] [place] [address], [id number], . tel:[phone] Referring Provider: Arian Purvis, [address] [place] [address], [address] . tel:[phone] OFFICE CONSULTATION [facility], [address] [place] [address], [id number] , tel:[phone] [facility] low back pain (chief complaint) Degeneration of lumbar or lumbosacral intervertebral disc 0-201 4 John Villaseñor. [address] [place], [place], [id number], . tel:[phone] Referring Provider: Arian Purvis, [address] [place] [address], [address] . tel:[phone] Family History Family Member Type Diagnosis Age At Onset Mother Problem (finding) fibromyalgia Payers Payer name Insurance type Covered republican ID Glynn mann(s) [facility] [id number] Social History Type Description Quantity Date Captured Comments Sex Female Smoking Status No Information Chief Complaint And Reason For Visit No Information Reason For Referral Reason For Referral No Information Plan Of Treatment Date Type Action Status Goal OARS. Due on due Goal Order Annual PT. Due on due Goal UDT. Due on due Goal AST (SGOT). Due on 23 due Goal WELDER FIRST CLASS Scanned. Due on 023 due Goal Height. Due on d ue Goal Update Social Hi story. Due on due Goal WARNING ANALYST Paperwork. Due on due Goal Weight. Due on d ue Goal Unhealthy drug u se screening. Due on due Goal Creatinine. Due on due Goal Lipid panel. Due on due Goal HPV. Due on due Goal Tobacco Use. Due on due Goal PHQ-9. Due on du e Goal Hepatitis C scre ening. Due on due Goal Medication Recon ciliation. Due on due Goal ALT (SGPT). Due on due Goal Review Allergy L ist. Due on due Goal AST (SGOT). Due on due Goal Order Annual PT. Due on due Goal Tobacco Use. Due on due Goal ALT (SGPT). Due on due Goal HPV. Due on due Goal WARNING ANALYST Paperwork. Due on due Goal Medication Recon ciliation. Due on due Goal OARS. Due on due Goal UDT. Due on due Goal WELDER FIRST CLASS Scanned. Due on due Goal Creatinine. Due on due Goal Height. Due on d ue Goal Unhealthy drug u se screening. Due on due Goal Weight. Due on d ue Goal Update Social Hi story. Due on due Goal Hepatitis C scre ening. Due on due Goal PHQ-9. Due on du e Goal Lipid panel. Due on due Goal Review Allergy L ist. Due on due Goal Lipid panel. Due [...] C scre ening. Due on due Goal WELDER FIRST CLASS Scanned. Due on due Goal Creatinine. Due on due Goal WARNING ANALYST Paperwork. Due on due Goal OARS. Due on due Goal UDT. Due on due Goal Order Annual PT. Due on due Goal Unhealthy drug u se screening. Due on due Goal Review Allergy L ist. Due on due Goal Medication Recon ciliation. Due on due Goal Order Annual PT. Due on due Goal Lipid panel. Due on due Goal Creatinine. Due on due Goal OARS. Due on due Goal Height. Due on d ue Goal PHQ-9. Due on du e Goal Medication Recon ciliation. Due on due Goal UDT. Due on due Goal Review Allergy L ist. Due on due Goal Tobacco Use. Due on due Goal AST (SGOT). Due on due Goal Weight. Due on d ue Goal ALT (SGPT). Due on due Goal WELDER FIRST CLASS Scanned. Due on due Goal Hepatitis C scre ening. Due on due Goal Unhealthy drug u se screening. Due on due Goal HPV. Due on due Goal Update Social Hi story. Due on due Goal WARNING ANALYST Paperwork. Due on due Goal AST (SGOT). [...] ue Goal OARS. Due on due Goal UDT. Due on due Goal Review Allergy L ist. Due on due Goal Order Annual PT. Due on due Goal WARNING ANALYST Paperwork. Due on due Goal ALT (SGPT). Due on due Goal WELDER FIRST CLASS Scanned. Due on due Goal Hepatitis C scre ening. Due on due Goal Lipid panel. Due on due Goal Creatinine. Due on due Goal OARS. Due on due Goal ALT (SGPT). Due on due Goal PHQ-9. Due on du e Goal WARNING ANALYST Paperwork. Due on due Goal WELDER FIRST CLASS Scanned. Due on due Goal Unhealthy drug [...] due Goal Creatinine. Due on due Goal Height. Due on d ue Goal Lipid panel. Due on due Goal ALT (SGPT). Due on due Goal Creatinine. Due on due Goal PHQ-9. Due on du e Goal Lipid panel. Due on due Goal WELDER FIRST CLASS Scanned. Due on due Goal Review Allergy [...] ue Goal OARS. Due on due Goal WARNING ANALYST Paperwork. Due on due Goal HPV. Due on due Goal AST (SGOT). Due on due Goal Lipid panel. Due on due Goal ALT (SGPT). Due on due Goal UDT. Due on due Goal WARNING ANALYST Paperwork. Due on due Goal PHQ-9. Due [...] ue Goal HPV. Due on due Goal Medication Recon ciliation. Due on due Goal WELDER FIRST CLASS Scanned. Due on due Goal Hepatitis C scre ening. Due on due Goal PHQ-9. Due on du e Goal HPV. Due on due Goal Height. Due on d ue Goal Medication Recon ciliation. Due on due Goal Tobacco Use. Due on due Goal Update Social Hi story. Due on due Goal Lipid panel. Due on due Goal Unhealthy drug u se screening. Due on due Goal Order Annual PT. Due on due Goal OARS. Due on due Goal Review Allergy L ist. Due on due Goal AST (SGOT). Due on due Goal WELDER FIRST CLASS Scanned. Due on due Goal Weight. Due on d ue Goal Creatinine. Due on due Goal UDT. Due on due Goal ALT (SGPT). Due on due Goal WARNING ANALYST Paperwork. Due on due Goal PHQ-9. Due on du e Goal WELDER FIRST CLASS Scanned. Due on due Goal Hepatitis C [...] due Goal HPV. Due on due Goal WARNING ANALYST Paperwork. Due on due Goal ALT (SGPT). Due on due Goal Order Annual PT. Due on due Goal OARS. Due on due Goal HPV. Due on due Goal Review Allergy L ist. Due on due Goal WELDER FIRST CLASS Scanned. Due on due Goal Hepatitis C scre ening. Due on due Goal Creatinine. Due on due Goal WARNING ANALYST Paperwork. Due on due Goal Lipid panel. Due on due Goal Height. Due on d ue Goal Tobacco Use. Due on due Goal PHQ-9. Due on du e Goal Weight. Due on d ue Goal Update Social Hi story. Due on due Goal Unhealthy drug u se screening. Due on due Goal UDT. Due on due Goal Medication Recon ciliation. Due on due Goal AST (SGOT). Due on due Goal Tobacco Use. Due on due Goal WELDER FIRST CLASS Scanned. Due on due Goal Height. Due on d ue Goal UDT. Due on due Goal Medication Recon ciliation. Due on due Goal Creatinine. Due on due Goal Review Allergy L ist. Due on due Goal WARNING ANALYST Paperwork. Due on due Goal AST (SGOT). Due on due Goal PHQ-9. Due on du e Goal Update Social Hi story. Due on due Goal OARS. Due on due Goal ALT (SGPT). Due on due Goal Order Annual PT. Due on due Goal Weight. Due on d ue Goal PHQ-9. Due [...] Medication Recon ciliation. Due on due Goal WARNING ANALYST Paperwork. Due on due Goal WELDER FIRST CLASS Scanned. Due on due Goal Order Annual PT. Due on due Goal Height. Due on d ue Goal OARS. Due on due Goal Tobacco Use. Due on due Goal Review Allergy L ist. Due on due Goal UDT. Due on due Goal Weight. Due on d ue Goal Update Social Hi story. Due on due Goal PHQ-9. Due on du e Goal ALT (SGPT). Due on due Goal Order Annual PT. Due on due Goal WARNING ANALYST Paperwork. Due on due Goal Creatinine. Due on due Goal AST (SGOT). Due on due Goal WELDER FIRST CLASS Scanned. Due on due Goal Medication Recon ciliation. Due on due Goal Update Social Hi story. Due on due Goal Order Annual PT. Due on due Goal Tobacco Use. Due on due Goal Medication Recon ciliation. Due on due Goal Weight. Due on d ue Goal Height. Due on d ue Goal Review Allergy L ist. Due on due Goal WARNING ANALYST Paperwork. Due on due Goal PHQ-9. Due on du e Goal ALT (SGPT). Due on due Goal WELDER FIRST CLASS Scanned. Due on due Goal AST (SGOT). Due on due Goal OARS. Due on due Goal UDT. Due on due Goal Creatinine. Due on due Goal Height. Due on d ue Goal Order Annual PT. Due on due Goal Weight. Due on d ue Goal ALT (SGPT). Due on due Goal AST (SGOT). Due on due Goal OARS. Due on due Goal WARNING ANALYST Paperwork. Due on due Goal Creatinine. Due on due Goal UDT. Due on due Goal Update Social Hi story. Due on due Goal Review Allergy L ist. Due on due Goal PHQ-9. Due on du e Goal WELDER FIRST CLASS Scanned. Due on due Goal Medication Recon ciliation. Due on due Goal Tobacco Use. Due on due Goal Order Annual PT. Due on due Goal Creatinine. Due on due Goal PHQ-9. Due on du e Goal Review Allergy L ist. Due on due Goal Medication Recon ciliation. Due on due Goal Tobacco Use. Due on due Goal OARS. Due on due Goal WELDER FIRST CLASS Scanned. Due on due Goal AST (SGOT). Due on due Goal WARNING ANALYST Paperwork. Due on due Goal Weight. Due on d ue Goal Height. Due on d ue Goal UDT. Due on due Goal ALT (SGPT). Due on due Goal Update Social Hi story. Due on due Goal Weight. Due on d ue Goal Medication Recon ciliation. Due on due Goal Height. Due on d ue Goal ALT (SGPT). Due on due Goal OARS. Due on due Goal Tobacco Use. Due on due Goal WARNING ANALYST Paperwork. Due on due Goal Creatinine. Due on due Goal AST (SGOT). Due on due Goal PHQ-9. Due on du e Goal Order Annual PT. Due on due Goal WELDER FIRST CLASS Scanned. Due on due Goal Review Allergy L ist. Due on due Goal Update Social Hi story. Due on due Goal UDT. Due on due Goal WELDER FIRST CLASS Scanned. Due on due Goal OARS. Due on due Goal PHQ-9. Due on du e Goal Height. Due on d ue Goal Review Allergy L ist. Due on due Goal Tobacco Use. Due on due Goal Order Annual PT. Due on due Goal Medication Recon ciliation. Due on due Goal WARNING ANALYST Paperwork. Due on due Goal Creatinine. Due on due Goal Weight. Due on d ue Goal ALT (SGPT). Due on due Goal Update Social Hi story. Due on due Goal UDT. Due on due Goal AST (SGOT). Due on 20 due Referral Ordered: KANIKA PINTO -[facility] : Family Medicine (related to Other intervertebral disc degeneration, lumbosacral region) ordered Referral Referred To: KANIKA PINTO [facility]
[address] [place] [address], [phone] Ordered: Referrals: [facility] Physicians : Family Medicine. KANIKA PINTO ordered Referral Ordered: MRI LUMBAR SPINE W/O DYE ordered Appointment Liz Walton BOOKED Future Order: Radiology Order MR Lumbar WO ([id number]), Ordered on: Ordered Future Order: Lab Order Drug Kiley t Def 22+ Classes (G0483), Ordered on: Ordered Future Order: Lab Order COMPLIAN CE DRUG ANALYSIS, URINE, WITH MED REPORT ([id number]), Ordered on: Ordered Future Order: Lab Order Drug Kiley t Def 22+ Classes ([id number]), Ordered on: Ordered Future Order: Lab Order COMPLIAN CE DRUG ANALYSIS, URINE, WITH MED REPORT ([id number]), Ordered on: Ordered Future Order: Lab Order COMPLIAN CE DRUG ANALYSIS, URINE, WITH MED REPORT ([id number]), Ordered on: Ordered History Of Present Illness [...] functionality. Presents short about 3 tabs of Pioneer. She is not sure what happened, but requests to get off Pioneer anyway. Notes some SEs of increased depression when taking the Pioneer. Denies other side effects from current medication [...] pain meds/drugs, stretching, changing positions and TENS. Comments: Liz presents virtually for follow up [...] functionality. She reports that she thinks of Pioneer as a bad drug and does not [...] pain meds/drugs, stretching, TESN and changing positions. low back pain The problem is s [...] She will be following up with a counter manager soon to evaluate other spots. Additionally notes [...] a change to her medication regimen. D/C'd Pioneer 5/325 mg and started Tramadol 50 mg at max 6/day on 12/15. Medication not counted today. Feels this regimen has provided more relief so far, although has noticed some increased leg pain, currently tolerable. Denies any significant SE's and doesn't think she will ever switch back to Pioneer. She continues to have good benefit with [...] remaining medication in her camper at her [facility] as she was living there temporarily while [...] functionality. States she is planning on discontinuing Pioneer once she is more settled after moving [...] meds/drugs and changing positions. low back pain (comments) [...] done and will have it sent to [facility]. Will be starting PT soon. She [...] - reports she has 2 tabs of Pioneer left at work but otherwise is not [...] meds/drugs and changing positions. low back pain (comments) [...] meds/drugs and changing positions. low back pain (comments) [...] work today.Presents with #16 tramadol and #6 Pioneer - on track. Reports current medication regimen [...] #2 tramadol 50mg - surplus, and no Pioneer 5/325mg - d/o 12/13/18. Reports current medication [...] positions and TENS. low back pain (comments) Patient is here for follow-up and medication refills. Patient has #38 Tramadol and #5 Pioneer remaining today - on track. Reports at [...] Patient has #29 Tramadol (surplus) and #6.5 Pioneer (on track( remaining today. Reports at least 80% relief from the medication which increases her daily activity level. Denies side effects. States she did something while moving things around her house and has increased pain on the left side of her back. Requesting and order for her to repeat Lumbar ESTRELLA that she had done at [facility] (due to insurance purposes) earlier this spring. [...] previous injections provided significant relief.Presents with #12 Pioneer - on track, and #13 Tramadol - [...] pain meds/drugs and rest. low back pain Severity level [...] refills. Patient has #9 Tramadol and #6 Pioneer remaining today - on track. Reports at [...] stretching and TENS. low back pain (comments) Evon ellison s here for f/u and medication management. Has #8 Pioneer and #3 tramadol - short. She is unsure why she is short on medications, stating she has not done anything different with her medications. Reports she keeps some pills at work but trusts her co-workers. States she had an ESTRELLA at [facility] about a month ago, which provided at least 25% pain relief. Denies any numbness or tingling in her legs since the injection. She inquired about decreasing Pioneer at next visit. No other concerns. low back pain (comments) Patient is here for follow-up and medication refills. Patient has #1 Pioneer and #3 Tramadol remaining today - 2 [...] still interested in pursuing an injection, however [facility] does not take her insurance so she [...] refills. Patient has #10 Tramadol and #5 Pioneer remaining today - on track. Reports at [...] She presents with #4 Tramadol and #1 Pioneer- on track. Medications continue to be helpful [...] follow-up and medication refills. Patient has #11 Pioneer (on track) and #32 Tramadol (>4 days [...] with #52 Tramadol- on track and #7 Pioneer- 1 day short. Believes she may have [...] has #13 Tramadol (on track) and #2 Pioneer (2.5 days short) remaining today. Reports at [...] moving. Of note, the weaning process of Pioneer did not go as well as she had hoped since this started before the holidays. low back pain (comments) Patient is here for follow-up and medication refills. Patient has #4 Pioneer (due out 12/02/16--small surplus) and #30 Tramadol (due out 12/03/16--large surplus) remaining today. Reports at least 50% relief from the medication which increases her daily activity level. Patient is wanting to get off of the Pioneer and just use Tramadol. She believes she [...] tub and changing positions. low back pain Severity [...] Patient has #49 Tramadol - surplus, #0 Pioneer remaining today - on track. Reports significant relief from the medication, Pioneer has been effective. Patient reports tingling on the bottoms of her feet likely due to prolonged standing at work. No other concerns today. low back pain (comments) Liz is here for follow up and medication refill regarding her low back pain. She has #44 Tramadol and #8 Pioneer, which is appropriate. She reports medications bring [...] Patient has #24 Tramadol (surplus) and no Pioneer remaining (3 days short). Reports taking more Pioneer after falling 4 weeks ago. Post-fall pain resolved by chiropractic and massage. Medications provide 80% pain relief; denies any SE. Is going on a vacation to [facility]. low back pain Severity level i s [...] f/u and medication refill. Presents with #2 Pioneer which is short and #12 tramadol which is appropriate. Discusses having some Pioneer in her daily pill organizer. Reports 80% [...] her last dose of tramadol yesterday and Pioneer about 3 days ago. 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 She denies any radicular pain. She tried ESIs at [facility] in the past with no lasting [...] pain meds/drugs, stretching and traction. Additional information: Evon has 56 tramadol and 15 norco which [...] ice and pain meds/drugs. 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 Has a dog obedience instructor to help her. She has 28 tramadol [...] is on track. She is going to [place] for vacation tomorrow. No new concerns. Had [...] patient is on track. Continue current medication Medications counted, patient is on track. Continue current medication Continue current medication Continue current medication Depression Screen Oswestry Score Assessments Type Assessment Date No Information Patient Care Teams Name Effective Dates (start - stop) Status Members No Information
--- OUTSIDE RECORDS SUMMARY | 2022-08-16 12:44 | XMS_ITS | Continuity of Care Document ---
Author Name Unknown Organization [facility] Address [address] [address] [place] [address] Phone Care Team Providers Care Integration Software Developer Name Role Phone Unavailable Unavailable Unavailable Advance Directives Directive Yes / No Effective Date File Name No Information Encounters Encounter Description Practice Location Reason(s) For Visit Diagnoses Date Provider Providers Copied on Encounter [facility], [address] [address], [place], [place], [id number], [place] tel:[phone] [facility] No Information 1 No Information Referring Provider: Bridget Chavez MD L, [address] [place], [address]. tel:[phone] Family History Family Member Type Diagnosis Age At Onset No Information Payers Payer name Insurance type Covered alliance party ID Authoriza tion(s) No Information Social History [...]
[2022-08-16] MEDS: metroNIDAZOLE 500 MG TABLET PO (13:21)
[2022-08-16] MEDS: TETANUS/DIPHTH/PERTUSSIS 0.5 ML SYRINGE IM (13:22)
[2022-08-16] MEDS: cefTRIAXone 2 GM in 0.9 % SODIUM CHLORIDE Mini-bag 100 ML IVPB (13:37)
[2022-08-16 14:13] VITALS: BP 126/85; RESP 16; TEMP 36.2; O2SAT 99
== END 2022-08-16 14:30 | disposition home or self-care (01) ==
PROVIDERS: Emergency Provider Family Medicine; PCP Family Medicine
DX: S61.257A Open bite of left little finger without damage to nail, 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 (principal); W55.01XA Bitten by cat, 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
CPT/HCPCS: 73140; 90715; 96365; 96372; 99283; 99284; A9270; J0696

== ENCOUNTER 2023-09-13 15:26 | Outpatient (CLI) | payer OTHER, SELFPAY ==
--- OUTSIDE RECORDS SUMMARY | 2023-09-17 19:16 | XMS_ITS | Continuity of Care Document ---
Author Organization [facility] Address [address] [place] [address] Care Team Providers Care Verification Engineer Name Role Phone [facility] Unavailable Unav ailable Advance Directives Directive Yes / No Effective Date File Name No Information Encounters Encounter Description Practice Location Reason(s) For Visit Diagnoses Date Provider Providers Copied on Encounter [facility], [address] [place], [place], [id number], [facility] No Information [facility]. [address] [facility] [place], [place], [id number], . tel:[phone] Referring Provider: Arian Soria, [address] [place], [address]. tel:[phone] Family History Family Member Type Diagnosis Age At Onset No Information Payers Payer name Insurance type Covered green party ID Authoriza tion(s) No Information Social History Type Description Quantity Date Captured Comments Sex Female Smoking Status No Information Chief Complaint And Reason For Visit No Information Reason For Referral Reason For Referral No Information History Of Present Illness Encounter Date Complaint History Of Prese nt Illness No Information Functional Status Date Functional Assessmen t No Information Instructions Date Instruction Additional Infor mation No Information Assessments Type Assessment Date No Information Patient Care Teams Name Effective Dates (start - stop) Status Members No Information
--- OUTSIDE RECORDS SUMMARY | 2023-09-17 19:17 | XMS_ITS | Continuity of Care Document ---
Author Organization [facility] Address [address] [address] [place] [address] Phone Care Team Providers Care Sap Developer Name Role Phone Luke Garcia MD, Pablito Welch Unavailtraci e Advance Directives Directive Yes / No Effective Date File Name No Information Encounters Encounter Description Practice Location Reason(s) For Visit Diagnoses Date Provider Providers Copied on Encounter [facility], [address] [address], [place], [place], [id number], [place] tel:[phone] [facility] No Information Luke Kenney. [address] [facility], [facility] [address], [place], [place], [id number], [place]. tel:[phone] Family History Family Member Type Diagnosis Age At Onset No Information Payers Payer name Insurance type Covered democrat ID Authoriza tion(s) No Information Social History [...]
--- OUTSIDE RECORDS SUMMARY | 2023-09-17 19:17 | XMS_ITS | Continuity of Care Document ---
Author Organization [facility] Address [address] [place] [address] Phone Care Team Providers Care Electrician Journeyman Wireman Name Role Phone Van Blanton MD Unavailable [...] Available - Active Procedures Procedure Date Office/Outpatient Visit,[facility] Advance Directives Directive Yes / No Effective Date File Name No Information Encounters Encounter Description Practice Location Reason(s) For Visit Diagnoses Date Provider Providers Copied on Encounter Office/Outpa tient Visit,[facility], [address], [place], [place], [id number], [place] tel:[phone] [facility] Other intervertebral disc degeneration, lumbar region 0 Transfeldt Ensor. [facility], [address] [place] [address], [facility] [address], [place], [place], [id number], [place]. tel:[phone] Referring Provider: Brent Carmona, [facility] [address] [place], [address]. tel:[phone] [facility], [address] [address], [place], [address], [place] tel:[phone] [facility] No Information 1 Eda Luis Angel. [facility] , [address] [facility] , [place], [address], [place]. tel:[phone] Family History Family Member Type Diagnosis Age At Onset No Information Payers Payer name Insurance type Covered constitution party ID Authoriza tion(s) No Information Social [...]
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
--- OUTSIDE RECORDS SUMMARY | 2023-09-17 19:17 | XMS_ITS | Continuity of Care Document ---
Author Organization [facility] kylah Address [address] [facility] [place] [address] Phone Care Team Providers Care Volunteer Patient Representative Name Role Phone Charleen Lopez CNP Unavailable Unavailable Allergies, Adverse Reactions, Alerts Substance Reaction Status Criticality amoxicillin Rash Active No Information Medications Medication Instructions Dosage Effective Dates (start - stop) Status Comments tramadol 50 mg tablet take 1 - 2 tablet by ORAL route every 6 hours as needed for chronic pain, max 6/day - Active Adderall XR 15 mg capsule,extended release take 1 capsule by oral route 2 times every day in the morning upon awakening 15 MG - Active Procedures Procedure Date OFFICE/OUTPATIENT VISIT, EST Drug Urine Toxology With Chromatography Drug test def 8-14 classes OFFICE VISIT, EST TELEMEDICINE OFFICE VISIT, EST TELEMEDICINE OFFICE/OUTPATIENT VISIT, EST Drug Urine Toxology With Chromatography Drug test def 1-7 classes OFFICE VISIT, EST TELEMEDICINE OFFICE VISIT, EST TELEMEDICINE Drug test def 1-7 classes Drug Urine Toxology With Chromatography OFFICE/OUTPATIENT VISIT, EST OFFICE VISIT, EST TELEMEDICINE ROUTINE BLOOD DRAW OFFICE/OUTPATIENT VISIT, EST Drug test def 1-7 classes Drug Urine Toxology With Chromatography OFFICE VISIT, EST TELEMEDICINE OFFICE VISIT, EST TELEMEDICINE Drug Urine Toxology [...] q3mo opiod tx OFFICE VISIT, EST TELEMEDICINE 21 Foll-up eval q3mo opiod tx OFFICE VISIT, EST TELEMEDICINE 21 Foll-up eval q3mo opiod tx OFFICE VISIT, EST TELEMEDICINE 21 Foll-up eval q3mo opiod tx OFFICE VISIT, [...] Diagnoses Date Provider Providers Copied on Encounter [facility], [address] [place] [address], [id number] , [place] tel:[phone] [facility] [place] No Information 4 John Villaseñor. [address] [place] [address], [id number], [place]. tel:[phone] OFFICE/OUTPAT IENT VISIT, EST [facility], [address] [place] [address], [id number] , [place] tel:[phone] [facility] low back pain (chief complaint) Other cervical disc degeneration at C5-C6 levelOther intervertebral disc degeneration, lumbosacral regionPain in unspecified lower legLong term (current) use of opiate analgesicOther spondylosis, lumbar regionEncounte r for therapeutic drug level monitoring 4 John Villaseñor. [address] [place] [address], [id number], [place]. tel:[phone] Referring Provider: Charleen Gu, [address] [place], [place] [address], [address] . tel:[phone] OFFICE VISIT, [facility] TELEMEDICINE [facility], [address] [place] [address], [id number] , [place] [phone] [facility] low back pain (chief complaint) Other spondylosis, lumbar regionOther cervical disc degeneration at C5-C6 levelOther intervertebral disc degeneration, lumbosacral regionPain in unspecified lower legLong term (current) use of opiate analgesic 4 John Villaseñor. [address] [place] [address], [id number], [place]. tel:[phone] OFFICE VISIT, EST TELEMEDICINE [facility], [address] [place] [address], [id number] , [place] tel:[phone] [facility] low back pain (chief complaint) Other spondylosis, lumbar regionOther cervical disc degeneration at C5-C6 levelOther intervertebral disc degeneration, lumbosacral regionPain in unspecified lower legLong term (current) use of opiate analgesic 4 John Moseley [address] [place] [address], [id number], [place]. tel:[phone] OFFICE/OUTPAT IENT VISIT, EST [facility], [address] [place] [address], [id number] , [place] [phone] [facility] low back pain (chief complaint) Other spondylosis, lumbar regionOther cervical disc degeneration at C5-C6 levelOther intervertebral disc degeneration, lumbosacral regionPain in unspecified lower legLong term (current) use of opiate analgesicEncou nter for therapeutic drug level monitoring 4 John Moselye [address] [place] [address], [id number], [place]. tel:[phone] Referring Provider: Charleen Gu, [address] [place], [place] [address], [address] . tel:[phone] OFFICE VISIT, EST TELEMEDICINE [facility], [address] [place] [address], [id number] , [place] [phone] [facility] low back pain (chief complaint) Other spondylosis, lumbar regionOther intervertebral disc degeneration, lumbosacral regionPain in unspecified lower legLong term (current) use of opiate analgesicOther cervical disc degeneration at C5-C6 level 4 John Moseley [address] [place] [address], [id number], [place]. tel:[phone] OFFICE VISIT, EST TELEMEDICINE [facility], [address] [place] [address], [id number] , [place] tel:[phone] [facility] low back pain (chief complaint) Other spondylosis, lumbar regionOther intervertebral disc degeneration, lumbosacral regionPain in unspecified lower legLong term (current) use of opiate analgesicCervi calgia 4 John Moseley [address] [place] [address], [id number], [place]. tel:[phone] [facility], [address] [place] [address], [id number] , [place] tel:[phone] [facility] [place] No Information 3 John Villaseñor. [address] [place] [address], [id number], [place]. [phone] Referring Provider: Charleen Gu, [address] [place], [place] [address], [address] . tel:[phone] OFFICE/OUTPAT IENT VISIT, [facility], [address] [place] [address], [id number] , [place] tel:[phone] [facility] low back pain (chief complaint) Other spondylosis, lumbar regionOther intervertebral disc degeneration, lumbosacral regionPain in unspecified lower legLong term (current) use of opiate analgesicEncou nter for therapeutic drug level monitoring 3 John Villaseñor. [address] [place] [address], [id number], [place]. tel:[phone] Referring Provider: Charleen Gu, [address] [place], [place] [address], [address] . tel:[phone] OFFICE VISIT, [facility], [address] [place] [address], [id number] , [place] tel:[phone] [facility] low back pain (chief complaint) Other spondylosis, lumbar regionOther intervertebral disc degeneration, lumbosacral regionPain in unspecified lower legLong term (current) use of opiate analgesic 3 John Villaseñor. [address] [place] [address], [id number], [place]. tel:[phone] Referring Provider: Arian Purvis, [address] [place] [address] [place], [address] . tel:[phone] [facility], [address] [place] [address], [id number] , [place] tel:[phone] [facility] No Information 3 John Villaseñor. [address] [place] [address], [id number], [place]. tel:[phone] OFFICE/OUTPAT IENT VISIT, EST [facility], [address] [place] [address], [id number] , [place] tel:[phone] [facility] low back pain (chief complaint) Other spondylosis, lumbar regionOther intervertebral disc degeneration, lumbosacral regionPain in unspecified lower legLong term (current) use of opiate analgesicEncou nter for therapeutic drug level monitoring 3 John Villaseñor. [address] [place] [address], [id number], [place]. tel:[phone] Referring Provider: Arian Purvis, [address] [place] [address], [address] . tel:[phone] [facility], [address] [place] [address], [id number] , [place] tel:[phone] [facility] No Information 3 John Villaseñor. [address] [place] [address], [id number], [place]. tel:[phone] Referring Provider: Arian Purvis, [address] [place] [address], [address] . tel:[phone] OFFICE VISIT, [facility], [address] [place] [address], [id number] , [place] tel:[phone] [facility] low back pain (chief complaint) Other spondylosis, lumbar regionOther intervertebral disc degeneration, lumbosacral regionLong term (current) use of opiate analgesicPain in unspecified lower leg 3 John Villaseñor. [address] [place] [address], [id number], [place]. tel:[phone] OFFICE VISIT, EST TELEMEDICINE [facility], [address] [place] [address], [id number] , [place] tel:[phone] [facility] low back pain (chief complaint) Other spondylosis, lumbar regionOther intervertebral disc degeneration, lumbosacral regionPain in unspecified lower legLong term (current) use of opiate analgesic 3 Yang Don. [address] [place] [address], [id number], [place]. tel:[phone] Referring Provider: Arian Purvis, [address] [place], [place] [address], [address] . tel:[phone] [facility], [address] [place] [address], [id number] , [place] tel:[phone] [facility] No Information 3 John Villaseñor. [address] [place] [address], [id number], [place]. tel:[phone] Referring Provider: Arian Purvis, [address] [place] [address], [address] . tel:[phone] OFFICE/OUTPAT IENT VISIT, EST [facility], [address] [place] [address], [id number] , [place] tel:[phone] [facility] low back pain (chief complaint) Other spondylosis, lumbar regionOther intervertebral disc degeneration, lumbosacral regionPain in unspecified lower legLong term (current) use of opiate analgesicEncou nter for therapeutic drug level monitoring 3 John Moseley [address] [place] [address], [id number], [place]. tel:[phone] Referring Provider: Arian Purvis, [address] [place] [address] [place], [address] . tel:[phone] OFFICE VISIT, EST TELEMEDICINE [facility], [address] [place] [address], [id number] , [place] tel:[phone] [facility] low back pain (chief complaint) Other spondylosis, lumbar regionOther intervertebral disc degeneration, lumbosacral regionPain in unspecified lower legLong term (current) use of opiate analgesic 3 John Villaseñor. [address] [place] [address], [id number], [place]. tel:[phone] Referring Provider: Arian Purvis, [address] [place], [place] [address], [address] . tel:[phone] OFFICE/OUTPAT IENT VISIT, [facility], [address] [place] [address], [id number] , [place] tel:[phone] [facility] low back pain (chief complaint) Other intervertebral disc degeneration, lumbosacral regionPain in unspecified lower legLong term (current) use of opiate analgesicOther spondylosis, lumbar region 2 John Villaseñor. [address] [place] [address], [id number], [place]. tel:[phone] Referring Provider: Arian Purvis, [address] [place] [address] [place], [address] . tel:[phone] OFFICE VISIT, [facility], [address] [place] [address], [id number] , [place] [phone] [facility] low back pain (chief complaint) Other intervertebral disc degeneration, lumbosacral regionPain in unspecified lower legLong term (current) use of opiate analgesic 2 John Villaseñor. [address] [place] [address], [id number], [place]. tel:[phone] OFFICE/OUTPAT IENT VISIT, [facility], [address] [place] [address], [id number] , [place] [phone] [facility] low back pain (chief complaint) Other intervertebral disc degeneration, lumbosacral regionPain in unspecified lower legLong term (current) use of opiate analgesicEncou nter for therapeutic drug level monitoring 2 John Villaseñor. [address] [place] [address], [id number], [place]. tel:[phone] Referring Provider: Arian Purvis, [address] [place], [place] [address], [address] . tel:[phone] [facility], [address] [place] [address], [id number] , [place] tel:[phone] [facility] [place] No Information 2 Krenzer Charleen. [address] [place] [address], [id number], [place]. tel:[phone] Referring Provider: Arian Purvis, [address] [place] [address] [place], [address] . tel:[phone] OFFICE VISIT, EST TELEMEDICINE [facility], [address] [place] [address], [id number] , [place] tel:[phone] [facility] low back pain (chief complaint) Other intervertebral disc degeneration, lumbosacral regionPain in unspecified lower legLong term (current) use of opiate analgesic 2 Krenzer Charleen. [address] [place] [address], [id number], [place]. tel:[phone] OFFICE VISIT, EST TELEMEDICINE [facility], [address] [place] [address], [id number] , [place] tel:[phone] [facility] low back pain (chief complaint) Other intervertebral disc degeneration, lumbosacral regionPain in unspecified lower legLong term (current) use of opiate analgesic June-0 2 Krenzer Charleen. [address] [place] [address], [id number], [place]. tel:[phone] Referring Provider: Arian Purvis, [address] [place] [address] [place], [address] . tel:[phone] [facility], [address] [place] [address], [id number] , [place] [phone] [facility] Intervertebral disc disorders with radiculopathy, lumbar region May- 2 Krenzer Charleen. [address] [place] [address], [id number], [place]. tel:[phone] [facility], [address] [place] [address], [id number] , [place] [phone] [facility] [place] No Information 2 John Charleen. [address] [place] [address], [id number], [place]. tel:[phone] Referring Provider: Arian Purvis, [address] [place] [address], [address] . tel:[phone] OFFICE/OUTPAT IENT VISIT, [facility], [address] [place] [address], [id number] , [place] [phone] [facility] low back pain (chief complaint) correction (current) use of opiate analgesicPain in unspecified lower legOther intervertebral disc degeneration, lumbosacral regionEncounte r for therapeutic drug level monitoringEnco unter for screening for other disorder 2 John Villaseñor. [address] [place] [address], [id number], [place]. tel:[phone] Referring Provider: Arian Purvis, [address] [place] [address], [address] . tel:[phone] OFFICE VISIT, [facility] TELEMEDICINE [facility], [address] [place] [address], [id number] , [place] [phone] [facility] low back pain (chief complaint) facility coordinator (current) use of opiate analgesicPain in unspecified lower legOther intervertebral disc degeneration, lumbosacral region 1 John Charleen. [address] [place] [address], [id number], [place]. tel:[phone] OFFICE VISIT, [facility] TELEMEDICINE [facility], [address] [place] [address], [id number] , [place] [phone] [facility] low back pain (chief complaint) facility coordinator (current) use of opiate analgesicPain in unspecified lower legOther intervertebral disc degeneration, lumbosacral region 1 Aubreezer Charleen. [address] [place] [address], [id number], [place]. tel:[phone] [facility], [address] [place] [address], [id number] , [place] tel:[phone] [facility] No Information Sep-0 1 John Villaseñor. [address] [place] [address], [id number], [place]. tel:[phone] Referring Provider: Arian Purvis, [address] [place], [place] [address], [address] . tel:[phone] OFFICE/OUTPAT IENT VISIT, [facility], [address] [place] [address], [id number] , [place] tel:[phone] [facility] low back pain (chief complaint) correction (current) use of opiate analgesicPain in unspecified lower legOther intervertebral disc degeneration, lumbosacral regionEncounte r for screening for other disorderEncoun ter for therapeutic drug level monitoring Oct-0 1 John Villaseñor. [address] [place] [address], [id number], [place]. tel:[phone] Referring Provider: Arian Purvis, [address] [place], [place] [address], [address] . tel:[phone] OFFICE VISIT, [facility], [address] [place] [address], [id number] , [place] tel:[phone] [facility] low back pain (chief complaint) correction (current) use of opiate analgesicPain in unspecified lower legOther intervertebral disc degeneration, lumbosacral region Blaze-0 1 John Villaseñor. [address] [place] [address], [id number], [place]. tel:[phone] Referring Provider: Arian Purvis, [address] [place], [place] [address], [address] . tel:[phone] OFFICE VISIT, [facility], [address] [place] [address], [id number] , [place] [phone] [facility] low back pain (chief complaint) facility coordinator (current) use of opiate analgesicPain in unspecified lower legOther intervertebral disc degeneration, lumbosacral region 1 Krenzer Charleen. [address] [place] [address], [id number], [place]. tel:[phone] Referring Provider: Arian Purvis, [address] [place] [address] [place], [address] . tel:[phone] OFFICE VISIT, EST TELEMEDICINE [facility], [address] [place] [address], [id number] , [place] [phone] [facility] low back pain (chief complaint) correction (current) use of opiate analgesicPain in unspecified lower legOther intervertebral disc degeneration, lumbosacral region 1 Krenzer Charleen. [address] [place] [address], [id number], [place]. tel:[phone] Referring Provider: Arian Purvis, [address] [place] [address], [address] . tel:[phone] OFFICE VISIT, EST TELEMEDICINE [facility], [address] [place] [address], [id number] , [place] tel: [phone] [facility] low back pain (chief complaint) facility coordinator (current) use of opiate analgesicPain in unspecified lower legOther intervertebral disc degeneration, lumbosacral region 1 Krenzer Charleen. [address] [place] [address], [id number], [place]. tel:[phone] Referring Provider: Arian Purvis, [address] [place] [address], [address] . tel:[phone] OFFICE VISIT, EST [facility], [address] [place] [address], [id number] , [place] tel:[phone] [facility] pain (chief complaint) facility coordinator (current) use of opiate analgesicPain in unspecified lower legOther intervertebral disc degeneration, lumbosacral region 0 Krenzer Charleen. [address] [place] [address], [id number], [place]. tel:[phone] Referring Provider: Arian Purvis, [address] [place], [place] [address], [address] . tel:[phone] OFFICE VISIT, [facility], [address] [place] [address], [id number] , [place] [phone] [facility] low back pain (chief complaint) facility coordinator (current) use of opiate analgesicPain in unspecified lower legOther intervertebral disc degeneration, lumbosacral region Nov-0 9-202 0 Krenzer Charleen. [address] [place] [address], [id number], [place]. tel:[phone] Referring Provider: Arian Purvis, [address] [place], [place] [address], [address] . tel:[phone] OFFICE VISIT, [facility], [address] [place] [address], [id number] , [place] tel:[phone] [facility] low back pain (chief complaint) Pain in unspecified lower legOther intervertebral disc degeneration, lumbosacral regionLong term (current) use of opiate analgesic Sep-1 0- 0 Krenzer Charleen. [address] [place] [address], [id number], [place]. tel:[phone] Referring Provider: Arian Purvis, [address] [place] [address] [place], [address] . tel:[phone] OFFICE VISIT, [facility], [address] [place] [address], [id number] , [place] [phone] [facility] low back pain (chief complaint) Pain in unspecified lower legOther intervertebral disc degeneration, lumbosacral regionLong term (current) use of opiate analgesic Blaze-2 - 0 Krenzer Charleen. [address] [place] [address], [id number], [place]. tel:[phone] Referring Provider: Arian Purvis, [address] [place], [place] [address], [address] . tel:[phone] OFFICE VISIT, [facility], [address] [place] [address], [id number] , [place] tel:[phone] [facility] low back pain (chief complaint) facility coordinator (current) use of opiate analgesicOther intervertebral disc degeneration, lumbosacral regionPain in unspecified lower leg Blaze-0 2-202 0 Luke Basiarnady Rodriguez. [address] [place] [address], [id number], [place]. tel:[phone] Referring Provider: Arian Purvis, [address] [place], [place] [address], [address] . tel:[phone] OFFICE/OUTPAT IENT VISIT, [facility], [address] [place] [address], [id number] , [place] [phone] [facility] low back pain (chief complaint) Pain in unspecified lower legOther intervertebral disc degeneration, lumbosacral regionLong term (current) use of opiate analgesic Gene-0 2-202 0 Krenzer Charleen. [address] [place] [address], [id number], [place]. tel:[phone] Referring Provider: Arian Purvis, [address] [place], [place] [address], [address] . tel:[phone] OFFICE VISIT, [facility], [address] [place] [address], [id number] , [place] [phone] [facility] low back pain (chief complaint) Other intervertebral disc degeneration, lumbosacral regionPain in unspecified lower legLong term (current) use of opiate analgesic Apr-3 0-202 0 Krenzer Charleen. [address] [place] [address], [id number], [place]. tel:[phone] Referring Provider: Arian Purvis, [address] [place], [place] [address], [address] . tel:[phone] OFFICE VISIT, [facility], [address] [place] [address], [id number] , [place] [phone] [facility] low back pain (chief complaint) Other intervertebral disc degeneration, lumbosacral regionPain in unspecified lower legLong term (current) use of opiate analgesic Apr-2 0 Alpanzer Charleen. [address] [place], [place], [id number], [place]. tel:[phone] Referring Provider: Arian Purvis, [address] [place] [address] [place], [address] . tel:[phone] OFFICE/OUTPAT IENT VISIT, [facility], [address] [place] [address], [id number] , [place] [phone] [facility] low back pain (chief complaint) Other intervertebral disc degeneration, lumbosacral regionPain in unspecified lower legLong term (current) use of opiate analgesicEncou nter for screening for other disorder Apr-0 0 John Villaseñor. [address] [place], [place], [id number], [place]. tel:[phone] Referring Provider: Arian Purvis, [address] [place] [address], [address] . tel:[phone] OFFICE VISIT, EST [facility], [address] [place] [address], [id number] , [place] tel:[phone] [facility] low back pain (chief complaint) Other intervertebral disc degeneration, lumbosacral regionPain in unspecified lower legLong term (current) use of opiate analgesic 0 Alpanjosiah Villaseñor. [address] [place], [place], [id number], [place]. tel:[phone] OFFICE/OUTPAT IENT VISIT, [facility], [address] [place] [address], [id number] , [place] tel:[phone] [facility] low back pain (chief complaint) Other intervertebral disc degeneration, lumbosacral regionPain in unspecified lower legLong term (current) use of opiate analgesic Feb- 0 Alpanzer Charleen. [address] [place] [address], [id number], [place]. tel:[phone] Referring Provider: Arian Purvis, [address] [facility] [place], [address] . tel:[phone] OFFICE/OUTPAT IENT VISIT, [facility], [address] [place] [address], [id number] , [place] tel:[phone] [facility] low back pain (chief complaint) Other intervertebral disc degeneration, lumbosacral regionLong term (current) use of opiate analgesicPain in unspecified lower legEncounter for therapeutic drug level monitoring Dec-0 3 9 [facility]. [address] [facility] [address], [place], [place], [id number], [place]. tel:[phone] Referring Provider: Arian Purvis, [address] [place] [address] [place], [address] . tel:[phone] OFFICE/OUTPAT IENT VISIT, [facility], [address] [place] [address], [id number] , [place] tel:[phone] [facility] low back pain (chief complaint) Other intervertebral disc degeneration, lumbosacral regionLong term (current) use of opiate analgesicPain in unspecified lower leg Nov-0 9 [facility]. [address] [facility] [address], [place], [place], [id number], [place]. tel:[phone] Referring Provider: Arian Purvis, [address] [place] [address] [place], [address] . tel:[phone] OFFICE/OUTPAT IENT VISIT, [facility], [address] [place] [address], [id number] , [place] tel:[phone] [facility] low back pain (chief complaint) Other intervertebral disc degeneration, lumbosacral regionLong term (current) use of opiate analgesic Sep-2 9 John Villaseñor. [address] [place], [place], [id number], [place]. tel:[phone] Referring Provider: Arian Purvis, [address] [facility] [place], [address] . tel:[phone] OFFICE/OUTPAT IENT VISIT, [facility], [address] [place] [address], [id number] , [place] [phone] [facility] low back pain (chief complaint) Other intervertebral disc degeneration, lumbosacral regionLong term (current) use of opiate analgesic 9 Alpanzer Charleen. [address] [place] [address], [id number], [place]. tel:[phone] Referring Provider: Arian Purvis, [address] [place], [place] [address], [address] . tel:[phone] [facility], [address] [place] [address], [id number] , [place] [phone] [facility] low back pain (chief complaint) Other intervertebral disc degeneration, lumbosacral regionLong term (current) use of opiate analgesic 9 John Villaseñor. [address] [place] [address], [id number], [place]. tel:[phone] Referring Provider: Arian Purvis, [address] [place], [place] [address], [address] . tel:[phone] OFFICE/OUTPAT IENT VISIT, [facility], [address] [place] [address], [id number] , [place] [phone] [facility] low back pain (chief complaint) Other intervertebral disc degeneration, lumbosacral regionLong term (current) use of opiate analgesicEncou nter for therapeutic drug level monitoring 9 John Villaseñor. [address] [place] [address], [id number], [place]. tel:[phone] Referring Provider: Arian Purvis, [address] [place], [place] [address], [address] . tel:[phone] OFFICE/OUTPAT IENT VISIT, [facility], [address] [place] [address], [id number] , [place] tel:[phone] [facility] low back pain (chief complaint) Other intervertebral disc degeneration, lumbosacral regionLong term (current) use of opiate analgesic May- 9 John Moseley [address] [place] [address], [id number], [place]. tel:[phone] Referring Provider: Arian Purvis, [address] [place] [address] [place], [address] . tel:[phone] OFFICE/OUTPAT IENT VISIT, [facility], [address] [place] [address], [id number] , [place] tel:[phone] [facility] low back pain (chief complaint) Other intervertebral disc degeneration, lumbosacral regionLong term (current) use of opiate analgesic Mar- 9 John Moseley [address] [place] [address], [id number], [place]. tel:[phone] Referring Provider: Arian Purvis, [address] [place] [address], [address] . tel:[phone] OFFICE/OUTPAT IENT VISIT, [facility], [address] [place] [address], [id number] , [place] tel:[phone] [facility] low back pain (chief complaint) Other intervertebral disc degeneration, lumbosacral region Feb- 9 John Moseley [address] [place] [address], [id number], [place]. tel:[phone] Referring Provider: Arian Purvis, [address] [place] [address], [address] . tel:[phone] OFFICE/OUTPAT IENT VISIT, [facility], [address] [place] [address], [id number] , [place] tel:[phone] [facility] low back pain (chief complaint) Other intervertebral disc degeneration, lumbosacral regionLong term (current) use of opiate analgesic 8 John Villaseñor. [address] [place] [address], [id number], [place]. tel:[phone] Referring Provider: Arian Purvis, [address] [place], [place] [address] [place], [address] . tel:[phone] OFFICE/OUTPAT IENT VISIT, [facility], [address] [place] [address], [id number] , [place] tel:[phone] [facility] low back pain (chief complaint) Other intervertebral disc degeneration, lumbosacral regionLong term (current) use of opiate analgesic Sep-0 4-201 8 Luke Rodriguez. [address] [place] [address], [id number], [place]. tel:[phone] Referring Provider: Arian Purvis, [address] [place], [place] [address], [address] . tel:[phone] OFFICE/OUTPAT IENT VISIT, [facility], [address] [place] [address], [id number] , [place] tel:[phone] [facility] low back pain (chief complaint) Other intervertebral disc degeneration, lumbosacral region Blaze-0 2-201 8 John Villaseñor. [address] [place] [address], [id number], [place]. tel:[phone] Referring Provider: Arian Purvis, [address] [place], [place] [address], [address] . tel:[phone] OFFICE/OUTPAT IENT VISIT, [facility], [address] [place] [address], [id number] , [place] tel:[phone] [facility] low back pain (chief complaint) Other intervertebral disc degeneration, lumbosacral regionLong term (current) use of opiate analgesic May-0 3-201 8 John Charleen. [address] [place] [address], [id number], [place]. tel:[phone] Referring Provider: Arian Purvis, [address] [place], [place] [address], [address] . tel:[phone] OFFICE/OUTPAT IENT VISIT, [facility], [address] [place] [address], [id number] , [place] tel: [phone] [facility] [place] low back pain (chief complaint) Other intervertebral disc degeneration, lumbosacral regionLong term (current) use of opiate analgesic 8 John Charleen. [address] [place] [address], [id number], [place]. tel:[phone] Referring Provider: Arian Purvis, [address] [place], [place] [address], [address] . tel:[phone] OFFICE/OUTPAT IENT VISIT, [facility], [address] [place] [address], [id number] , [place] tel:[phone] [facility] low back pain (chief complaint) Other intervertebral disc degeneration, lumbosacral region 8 John Villaseñor. [address] [place] [address], [id number], [place]. [phone] Referring Provider: Arian Purvis, [address] [place], [place] [address], [address] . tel:[phone] OFFICE/OUTPAT IENT VISIT, [facility], [address] [place] [address], [id number] , [place] tel:[phone] [facility] low back pain (chief complaint) Other intervertebral disc degeneration, lumbosacral region 7 Aubreezer Charleen. [address] [place] [address], [id number], [place]. [phone] Referring Provider: Arian Purvis, [address] [place], [place] [address], [address] . tel:[phone] OFFICE/OUTPAT IENT VISIT, [facility], [address] [place] [address], [id number] , [place] tel:[phone] [facility] low back pain (chief complaint) Other intervertebral disc degeneration, lumbosacral region 7 John Charleen. [address] [place] [address], [id number], [place]. tel:[phone] Referring Provider: Arian Purvis, [address] [place], [place] [address], [address] . tel:[phone] OFFICE/OUTPAT IENT VISIT, [facility], [address] [place] [address], [id number] , [place] tel:[phone] [facility] low back pain (chief complaint) Other intervertebral disc degeneration, lumbosacral regionLong term (current) use of opiate analgesic 7 John Charleen. [address] [place] [address], [id number], [place]. tel:[phone] Referring Provider: Arian Purvis, [address] [place], [place] [address], [address] . tel:[phone] OFFICE/OUTPAT IENT VISIT, [facility], [address] [place] [address], [id number] , [place] tel:[phone] [facility] low back pain (chief complaint) Other intervertebral disc degeneration, lumbosacral region 7 John Charleen. [address] [place] [address], [id number], [place]. tel:[phone] Referring Provider: Arian Purvis, [address] [place], [place] [address], [address] . tel:[phone] OFFICE/OUTPAT IENT VISIT, [facility], [address] [place] [address], [id number] , [place] [phone] [facility] low back pain (chief complaint) Other intervertebral disc degeneration, lumbosacral region Fe 7 John Charleen. [address] [place] [address], [id number], [place]. tel:[phone] Referring Provider: Arian Purvis, [address] [place], [place] [address], [address] . tel:[phone] OFFICE/OUTPAT IENT VISIT, [facility], [address] [place] [address], [id number] , [place] tel:[phone] [facility] low back pain (chief complaint) Other intervertebral disc degeneration, lumbosacral region 6 Krenzer Charleen. [address] [place] [address], [id number], [place]. [phone] Referring Provider: Arian Purvis, [address] [place], [place] [address], [address] . tel:[phone] OFFICE/OUTPAT IENT VISIT, [facility], [address] [place] [address], [id number] , [place] tel:[phone] [facility] low back pain (chief complaint) Other intervertebral disc degeneration, lumbosacral regionLong term (current) use of opiate analgesic 6 Alpanzer Charleen. [address] [place] [address], [id number], [place]. tel:[phone] Referring Provider: Arian Purvis, [address] [place], [place] [address], [address] . tel:[phone] OFFICE/OUTPAT IENT VISIT, [facility], [address] [place] [address], [id number] , [place] tel:[phone] [facility] low back pain (chief complaint) Other intervertebral disc degeneration, lumbosacral region 6 Krenzer Charleen. [address] [place] [address], [id number], [place]. tel:[phone] Referring Provider: Arian Purvis, [address] [place], [place] [address], [address] . tel:[phone] OFFICE/OUTPAT IENT VISIT, [facility], [address] [place] [address], [id number] , [place] tel:[phone] [facility] low back pain (chief complaint) Other intervertebral disc degeneration, lumbosacral region 5-201 6 Krenzer Charleen. [address] [place] [address], [id number], [place]. tel:[phone] Referring Provider: Arian Purvis, [address] [place], [place] [address], [address] . tel:[phone] OFFICE/OUTPAT IENT VISIT, [facility], [address] [place] [address], [id number] , [place] tel:[phone] [facility] low back pain (chief complaint) Other intervertebral disc degeneration, lumbosacral region 0 3-201 6 Krenzer Charleen. [address] [place] [address], [id number], [place]. tel:[phone] Referring Provider: Arian Purvis, [address] [place] [address] [place], [address] . tel:[phone] OFFICE/OUTPAT IENT VISIT, [facility], [address] [place] [address], [id number] , [place] tel:[phone] [facility] Back Pain (chief complaint) Other intervertebral disc degeneration, lumbosacral region 0 6 6 Krenzer Charleen. [address] [place] [address], [id number], [place]. tel:[phone] Referring Provider: Arian Purvis, [address] [place] [address] [place], [address] . tel:[phone] [facility], [address] [place] [address], [id number] , [place] tel:[phone] [facility] [place] facility coordinator (current) use of opiate analgesic 0 5-201 6 Krenzer Charleen. [address] [place] [address], [id number], [place]. tel:[phone] OFFICE/OUTPAT IENT VISIT, [facility], [address] [place] [address], [id number] , [place] tel:[phone] [facility] [place] Back Pain (chief complaint) Other intervertebral disc degeneration, lumbosacral region 5 5 Krenzer Charleen. [address] [place] [address], [id number], [place]. tel:[phone] Referring Provider: Arian Purvis, [address] [place], [place] [address], [address] . tel:[phone] OFFICE/OUTPAT IENT VISIT, [facility], [address] [place] [address], [id number] , [place] tel: [phone] [facility] [place] Back Pain (chief complaint) Other intervertebral disc degeneration, lumbosacral region 5 Krenzer Charleen. [address] [place] [address], [id number], [place]. tel:[phone] Referring Provider: Arian Purvis, [address] [place], [place] [address], [address] . tel:[phone] OFFICE/OUTPAT IENT VISIT, [facility], [address] [place] [address], [id number] , [place] tel: [phone] [facility] [place] Back Pain (chief complaint) Degeneration of lumbar or lumbosacral intervertebral disc 5 Krenzer Charleen. [address] [place] [address], [id number], [place]. tel:[phone] Referring Provider: Arian Purvis, [address] [place], [place] [address], [address] . tel:[phone] OFFICE/OUTPAT IENT VISIT, [facility], [address] [place] [address], [id number] , [place] tel: [phone] [facility] (chief complaint) Degeneration of lumbar or lumbosacral intervertebral disc 5 Krenzer Charleen. [address] [place] [address], [id number], [place]. tel:[phone] Referring Provider: Arian Purvis, [address] [place] [address], [place], [address] . tel:[phone] OFFICE/OUTPAT IENT VISIT, EST [facility], [address] [place] [address], [id number] , tel:[phone] [facility] Back Pain (chief complaint) Degeneration of lumbar or lumbosacral intervertebral disc 5 John Villaseñor. [address] [place] [address], [id number], [place]. [phone] Referring Provider: Arian Purvis, [address] [place] [address], [address] . tel:[phone] OFFICE/OUTPAT IENT VISIT, [facility], [address] [place] [address], [id number] , [place] tel:[phone] [facility] Back Pain (chief complaint) Degeneration of lumbar or lumbosacral intervertebral disc 5 John Villaseñor. [address] [place] [address], [id number], [place]. tel:[phone] Referring Provider: Arian Purvis, [address] [place] [address], [address] . tel:[phone] [facility], [address] [place] [address], [id number] , [place] tel:[phone] [facility] Current use of a medication 5 John Villaseñor. [address] [place] [address], [id number], [place]. [phone] [facility], [address] [place] [address], [id number] , [place] tel:[phone] [facility] general orthopedic (chief complaint) Lumbago 5 No Information OFFICE/OUTPAT IENT VISIT, [facility], [address] [place] [address], [id number] , [place] tel:[phone] [facility] Back Pain (chief complaint) Degeneration of lumbar or lumbosacral intervertebral disc 4 John Villaseñor. [address] [place] [address], [id number], [place]. tel:[phone] Referring Provider: Arian Purvis, [address] [place] [address] [place], [address] . tel:[phone] OFFICE/OUTPAT IENT VISIT, EST [facility], [address] [place] [address] [place], [id number] , [place] tel:[phone] [facility] low back pain (chief complaint) LumbagoDegener ation of lumbar or lumbosacral intervertebral disc 4 John Villaseñor. [address] [place] [address], [id number], [place]. tel:[phone] Referring Provider: Arian Purvis, [address] [place] [address] [place], [address] . tel:[phone] [facility], [address] [place] [address], [id number] , [place] tel:[phone] [facility] [place] No Information 4 No Information Referring Provider: Arian Purvis, [address] [place], [place] [address], [address] . tel:[phone] [facility], [address] [place] [address], [id number] , [place] tel:[phone] [facility] [place] No Information [address] [place] [address], [id number], [place]. tel:[phone] Referring Provider: Arian Purvis, [address] [place] [address] [place], [address] . tel:[phone] [facility], [address] [place] [address], [id number] , [place] tel:[phone] [facility] [place] back pain (chief complaint) No Information 4 Will Arian. [address] [place] [address], [id number], [place]. tel:[phone] Referring Provider: Arian Purvis, [address] [place], [place] [address], [address] . tel:[phone] OFFICE/OUTPAT IENT VISIT, [facility], [address] [place] [address], [id number] , [place] [phone] [facility] low back pain (chief complaint) Degeneration of lumbar or lumbosacral intervertebral disc 4 John Villaseñor. [address] [place] [address], [id number], [place]. tel:[phone] Referring Provider: Arian Purvis, [address] [place], [place] [address], [address] . tel:[phone] [facility], [address] [place] [address], [id number] , [place] tel:[phone] [facility] back pain (chief complaint) No Information 4 Will Arian. [address] [place] [address], [id number], [place]. tel:[phone] Referring Provider: Arian Purvis, [address] [place], [place] [address], [address] . tel:[phone] [facility], [address] [place] [address], [id number] , [place] [phone] [facility] back pain (chief complaint) No Information 4 Will Arian. [address] [place] [address], [id number], [place]. tel:[phone] Referring Provider: Arian Purvis, [address] [place], [place] [address], [address] . tel:[phone] OFFICE/OUTPAT IENT VISIT, [facility], [address] [place] [address], [id number] , [place] tel:[phone] [facility] low back pain (chief complaint) Degeneration of lumbar or lumbosacral intervertebral disc 4 John Villaseñor. [address] [place] [address], [id number], [place]. tel:[phone] Referring Provider: Arian Purvis, [address] [place] [address] [place], [address] . tel:[phone] [facility], [address] [place] [address], [id number] , [place] [phone] [facility] [place] back pain (chief complaint) No Information 4 John Villaseñor. [address] [place] [address], [id number], [place]. tel:[phone] Referring Provider: Arian Purvis, [address] [place] [address] [place], [address] . tel:[phone] [facility], [address] [place] [address], [id number] , [place] [phone] [facility] Degeneration of lumbar or lumbosacral intervertebral disc 4 Diana Pena. [address] [place] [address], [id number], [place]. tel:[phone] Referring Provider: Arian Purvis, [address] [place] [address] [place], [address] . tel:[phone] OFFICE/OUTPAT IENT VISIT, [facility], [address] [place] [address], [id number] , [place] [phone] [facility] low back pain (chief complaint) Lumbago 4 John Villaseñor. [address] [place] [address], [id number], [place]. tel:[phone] Referring Provider: Arian Purvis, [address] [place] [address] [place], [address] . tel:[phone] OFFICE CONSULTATION [facility], [address] [place] [address], [id number] , [place] [phone] [facility] low back pain (chief complaint) Degeneration of lumbar or lumbosacral intervertebral disc May-3 0-201 4 John Villaseñor. [address] [place], [place], [id number], [place]. tel:[phone] Referring Provider: Arian Purvis, [address] [facility] [place], [address] . tel:[phone] Family History Family Member Type Diagnosis Age At Onset Mother Problem (finding) fibromyalgia Payers Payer name Insurance type Covered constitution party ID Authormargauxa rjbrian(s) Vincent NEMO [id number] Social History Type Description Quantity Date Captured Comments Sex Female Smoking Status No Information Chief Complaint And Reason For Visit No Information Reason For Referral Reason For Referral No Information Plan Of Treatment Date Type Action Status Goal Creatinine. Due on due Goal Review Allergy L ist. Due on due Goal PHQ-9. Due on du e Goal DEVELOPMENT ENG Scanned. Due on due Goal UDT. Due on due Goal Lipid panel. Due on due Goal Tobacco Use. Due on due Goal Unhealthy drug u se screening. Due on due Goal Medication Recon ciliation. Due on due Goal HPV. Due on due Goal ENVELOPE FOLD OPERATOR Paperwork. Due on due Goal Order Annual PT. Due on due Goal Update Social Hi story. Due on due Goal Height. Due on d ue Goal OARS. Due on due Goal AST (SGOT). Due on due Goal ALT (SGPT). Due on due Goal Weight. Due on d ue Goal Hepatitis C scre ening. Due on due Goal ENVELOPE FOLD OPERATOR Paperwork. Due on due Goal DEVELOPMENT ENG Scanned. Due on due Goal ALT (SGPT). Due [...] Allergy L ist. Due on due Goal Unhealthy drug u se screening. Due on due Goal Tobacco Use. Due on due Goal Creatinine. Due on due Goal DEVELOPMENT ENG Scanned. Due on due Goal Order Annual PT. Due on due Goal ALT (SGPT). Due on due Goal AST (SGOT). Due on due Goal UDT. Due on due Goal ENVELOPE FOLD OPERATOR Paperwork. Due on due Goal OARS. Due on due Goal Unhealthy drug u se screening. Due on due Goal Hepatitis C scre ening. Due on due Goal Tobacco Use. Due on due Goal PHQ-9. Due on du e Goal Weight. Due on d ue Goal Update Social Hi story. Due on due Goal Medication Recon ciliation. Due on due Goal Lipid panel. Due on due Goal Height. Due on d ue Goal HPV. Due on due Goal Review Allergy L ist. Due on due Goal Creatinine. Due on due Goal Order Annual PT. Due on due Goal Height. Due on d ue Goal AST (SGOT). Due on due Goal Weight. Due on d ue Goal UDT. Due on due Goal Review Allergy L ist. Due on due Goal HPV. Due on due Goal OARS. Due on due Goal ENVELOPE FOLD OPERATOR Paperwork. Due on due Goal ALT (SGPT). Due on due Goal Medication Recon ciliation. Due on due Goal DEVELOPMENT ENG Scanned. Due on due Goal Lipid panel. Due on due Goal Unhealthy drug u se screening. Due on due Goal Update Social Hi story. Due on due Goal PHQ-9. Due on du e Goal Tobacco Use. Due on due Goal Hepatitis C scre ening. Due on due Goal AST (SGOT). Due on due Goal Creatinine. Due on due Goal HPV. Due on due Goal ALT (SGPT). Due on due Goal DEVELOPMENT ENG Scanned. Due on due Goal Review Allergy L ist. Due on due Goal OARS. Due on due Goal PHQ-9. Due on du e Goal Unhealthy drug u se screening. Due on due Goal ENVELOPE FOLD OPERATOR Paperwork. Due on due Goal Update Social Hi story. Due on due Goal Medication Recon ciliation. Due on due Goal Order Annual PT. Due on due Goal Height. Due on d ue Goal Lipid panel. Due on due Goal Tobacco Use. Due on due Goal UDT. Due on due Goal Weight. Due on d ue Goal Hepatitis C scre ening. Due on due Goal Tobacco Use. Due on due Goal AST (SGOT). Due on due Goal Creatinine. Due on due Goal ALT (SGPT). Due on due Goal DEVELOPMENT ENG Scanned. Due on due Goal Lipid panel. Due on due Goal Medication Recon ciliation. Due on due Goal Hepatitis C scre ening. Due on due Goal Review Allergy L ist. Due on due Goal ENVELOPE FOLD OPERATOR Paperwork. Due on due Goal Height. Due on d ue Goal OARS. Due on due Goal UDT. Due on due Goal Order Annual PT. Due on due Goal HPV. Due on due Goal PHQ-9. Due on du e Goal Unhealthy drug u se screening. Due on due Goal Weight. Due on d ue Goal Update Social Hi story. Due on due Goal ALT (SGPT). Due on due Goal ENVELOPE FOLD OPERATOR Paperwork. Due on due Goal Hepatitis C scre ening. Due on due Goal Order Annual PT. Due on due Goal HPV. Due on due Goal Unhealthy drug u se screening. Due on due Goal Update Social Hi story. Due on due Goal Creatinine. Due on due Goal OARS. Due on due Goal Height. Due on d ue Goal Review Allergy L ist. Due on due Goal Medication Recon ciliation. Due on due Goal PHQ-9. Due on du e Goal Tobacco Use. Due on due Goal Lipid panel. Due on due Goal UDT. Due on due Goal DEVELOPMENT ENG Scanned. Due on due Goal AST (SGOT). Due on due Goal Weight. Due on d ue Goal ENVELOPE FOLD OPERATOR Paperwork. Due on due Goal ALT (SGPT). Due on due Goal DEVELOPMENT ENG Scanned. Due on due Goal Weight. Due on d ue Goal Review Allergy L ist. Due on due Goal Update Social Hi story. Due on due Goal PHQ-9. Due on du e Goal Creatinine. Due on due Goal Hepatitis C scre ening. Due on due Goal UDT. Due on due Goal Tobacco Use. Due on due Goal Order Annual PT. Due on due Goal Height. Due on d ue Goal OARS. Due on due Goal Unhealthy drug u se screening. Due on due Goal AST (SGOT). Due on due Goal Medication Recon ciliation. Due on due Goal HPV. Due on due Goal Lipid panel. Due on due Goal ENVELOPE FOLD OPERATOR Paperwork. Due on due Goal ALT (SGPT). Due on due Goal AST (SGOT). Due on due Goal OARS. Due on due Goal Height. Due on d ue Goal DEVELOPMENT ENG Scanned. Due on due Goal Tobacco Use. Due on due Goal Order Annual PT. Due on due Goal Weight. Due on d ue Goal Creatinine. Due on due Goal PHQ-9. Due on du e Goal Unhealthy drug u se screening. Due on due Goal HPV. Due on due Goal Medication Recon ciliation. Due on due Goal Review Allergy L ist. Due on due Goal Hepatitis C scre ening. Due on due Goal UDT. Due on due Goal Update Social Hi story. Due on due Goal Lipid panel. Due on due Goal ENVELOPE FOLD OPERATOR Paperwork. Due on due Goal AST (SGOT). Due on due Goal DEVELOPMENT ENG Scanned. Due on due Goal HPV. Due on due Goal Tobacco Use. Due on due Goal Weight. Due on d ue Goal Review Allergy L ist. Due on due Goal Hepatitis C scre ening. Due on due Goal Order Annual PT. Due on due Goal ALT (SGPT). Due on due Goal Height. Due on d ue Goal Update Social Hi story. Due on due Goal UDT. Due on due Goal PHQ-9. Due on du e Goal Lipid panel. Due on due Goal Medication Recon ciliation. Due on due Goal OARS. Due on due Goal Creatinine. Due on due Goal Unhealthy drug u se screening. Due on due Goal ALT (SGPT). Due on due Goal Creatinine. Due on due Goal ENVELOPE FOLD OPERATOR Paperwork. Due on due Goal UDT. Due on due Goal Order Annual PT. Due on due Goal HPV. Due on due Goal AST (SGOT). Due on due Goal DEVELOPMENT ENG Scanned. Due on due Goal OARS. Due on due Goal Medication Recon ciliation. Due on due Goal Weight. Due on d ue Goal Height. Due on d ue Goal Review Allergy L ist. Due on due Goal Unhealthy drug u se screening. Due on due Goal Lipid panel. Due on due Goal PHQ-9. Due on du e Goal Update Social Hi story. Due on due Goal Hepatitis C scre ening. Due on due Goal Tobacco Use. Due on due Goal Medication Recon ciliation. Due on due Goal Creatinine. Due on due Goal ALT (SGPT). Due on due Goal ENVELOPE FOLD OPERATOR Paperwork. Due on due Goal UDT. Due on due Goal OARS. Due on due Goal HPV. Due on due Goal DEVELOPMENT ENG Scanned. Due on due Goal PHQ-9. Due on du e Goal Review Allergy L ist. Due on due Goal Unhealthy drug u se screening. Due on due Goal Hepatitis C scre ening. Due on due Goal Update Social Hi story. Due on due Goal AST (SGOT). Due on due Goal Weight. Due on d ue Goal Height. Due on d ue Goal Order Annual PT. Due on due Goal Tobacco Use. Due on due Goal Lipid panel. Due on due Goal DEVELOPMENT ENG Scanned. Due on due Goal AST (SGOT). Due on due Goal OARS. Due on due Goal ALT (SGPT). Due on due Goal Medication Recon ciliation. Due on due Goal UDT. Due on due Goal Creatinine. Due on due Goal Order Annual PT. Due on due Goal ENVELOPE FOLD OPERATOR Paperwork. Due on due Goal PHQ-9. Due on du e Goal Update Social Hi story. Due on due Goal Tobacco Use. Due on due Goal HPV. Due on due Goal Review Allergy L ist. Due on due Goal Unhealthy drug u se screening. Due on due Goal Weight. Due on d ue Goal Height. Due on d ue Goal Hepatitis C scre ening. Due on due Goal Lipid panel. Due on due Goal DEVELOPMENT ENG Scanned. Due on due Goal Creatinine. Due on due Goal AST (SGOT). Due on due Goal Order Annual PT. Due on due Goal Tobacco Use. Due on due Goal ALT (SGPT). Due on due Goal HPV. Due on due Goal ENVELOPE FOLD OPERATOR Paperwork. Due on due Goal Medication Recon ciliation. Due on due Goal UDT. Due on due Goal OARS. Due on due Goal Height. Due on d ue Goal Unhealthy drug u se screening. Due on due Goal Update Social Hi story. Due on due Goal Weight. Due on d ue Goal Review Allergy L ist. Due on due Goal PHQ-9. Due on du e Goal Lipid panel. Due on due Goal Hepatitis C scre [...] C scre ening. Due on due Goal DEVELOPMENT ENG Scanned. Due on due Goal Creatinine. Due on due Goal ENVELOPE FOLD OPERATOR Paperwork. Due on due Goal OARS. [...] Goal ALT (SGPT). Due on due Goal DEVELOPMENT ENG Scanned. Due on due Goal Hepatitis C scre ening. Due on due Goal Unhealthy drug u se screening. Due on due Goal HPV. Due on due Goal Update Social Hi story. Due on due Goal ENVELOPE FOLD OPERATOR Paperwork. Due on due Goal DEVELOPMENT ENG Scanned. Due on due Goal Hepatitis C [...] Order Annual PT. Due on due Goal ENVELOPE FOLD OPERATOR Paperwork. Due on due Goal ALT (SGPT). Due on due Goal Height. Due on d ue Goal Lipid panel. Due on due Goal OARS. Due on due Goal ALT (SGPT). Due on due Goal PHQ-9. Due on du e Goal ENVELOPE FOLD OPERATOR Paperwork. Due on due Goal DEVELOPMENT ENG Scanned. Due on due Goal Unhealthy drug [...] Goal Lipid panel. Due on due Goal DEVELOPMENT ENG Scanned. Due on due Goal Review Allergy L ist. Due on due Goal Hepatitis C scre ening. Due on due Goal Order Annual PT. Due on due Goal Unhealthy drug u se screening. Due on due Goal Tobacco Use. Due on due Goal UDT. Due on due Goal Height. Due on d ue Goal AST (SGOT). Due on due Goal ENVELOPE FOLD OPERATOR Paperwork. Due on due Goal HPV. Due on due Goal Medication Recon ciliation. Due on due Goal DEVELOPMENT ENG Scanned. Due on due Goal AST (SGOT). Due on due Goal Lipid panel. Due on due Goal ALT (SGPT). Due on due Goal UDT. Due on due Goal ENVELOPE FOLD OPERATOR Paperwork. Due on due Goal PHQ-9. [...] Goal Weight. Due on d ue Goal DEVELOPMENT ENG Scanned. Due on due Goal AST (SGOT). Due on due Goal Review Allergy L ist. Due on due Goal OARS. Due on due Goal Order Annual PT. Due on due Goal ENVELOPE FOLD OPERATOR Paperwork. Due on due Goal Unhealthy [...] due Goal HPV. Due on due Goal ENVELOPE FOLD OPERATOR Paperwork. Due on due Goal PHQ-9. Due on du e Goal DEVELOPMENT ENG Scanned. Due on due Goal Hepatitis C scre ening. Due on due Goal Height. Due on d ue Goal OARS. Due on due Goal Order Annual PT. Due on due Goal ALT (SGPT). Due on due Goal Update Social Hi story. Due on due Goal Unhealthy drug u se screening. Due on due Goal UDT. Due on due Goal Review Allergy L ist. Due on due Goal DEVELOPMENT ENG Scanned. Due on due Goal Hepatitis C scre ening. Due on due Goal Creatinine. Due on due Goal ENVELOPE FOLD OPERATOR Paperwork. Due on due Goal Medication Recon ciliation. Due on due Goal AST (SGOT). Due on due Goal HPV. Due on due Goal Weight. Due on d ue Goal Lipid panel. Due on due Goal Height. Due on d ue Goal Tobacco Use. Due on due Goal PHQ-9. Due on du e Goal ENVELOPE FOLD OPERATOR Paperwork. Due on due Goal AST (SGOT). Due on due Goal PHQ-9. Due on du e Goal Update Social Hi story. Due on due Goal OARS. Due on due Goal ALT (SGPT). Due on due Goal Tobacco Use. Due on due Goal DEVELOPMENT ENG Scanned. Due on due Goal Height. Due on d ue Goal UDT. Due on due Goal Medication Recon ciliation. Due on due Goal Creatinine. Due on due Goal Review Allergy L ist. Due on due Goal Order Annual PT. Due on due Goal Weight. Due on d ue Goal Medication Recon ciliation. Due on due Goal ENVELOPE FOLD OPERATOR Paperwork. Due on due Goal DEVELOPMENT ENG Scanned. Due on due Goal Order Annual [...] Social Hi story. Due on due Goal Creatinine. Due on due Goal ENVELOPE FOLD OPERATOR Paperwork. Due on due Goal Order [...] Goal AST (SGOT). Due on due Goal DEVELOPMENT ENG Scanned. Due on due Goal Weight. Due on d ue Goal Height. Due on d ue Goal PHQ-9. Due on du e Goal Update Social Hi story. Due on due Goal Order Annual PT. Due on due Goal Tobacco Use. Due on due Goal Medication Recon ciliation. Due on due Goal Review Allergy L ist. Due on due Goal ENVELOPE FOLD OPERATOR Paperwork. Due on due Goal ALT (SGPT). Due on due Goal DEVELOPMENT ENG Scanned. Due on due Goal AST (SGOT). Due on due Goal OARS. Due on due Goal UDT. Due on due Goal Creatinine. Due on due Goal Creatinine. Due on due Goal UDT. Due on due Goal Update Social Hi story. Due on due Goal Review Allergy L ist. Due on due Goal PHQ-9. Due on du e Goal DEVELOPMENT ENG Scanned. Due on due Goal Height. Due on d ue Goal Order Annual PT. Due on due Goal Weight. Due on d ue Goal ALT (SGPT). Due on due Goal AST (SGOT). Due on due Goal OARS. Due on due Goal ENVELOPE FOLD OPERATOR Paperwork. Due on due Goal Medication Recon ciliation. Due on due Goal Tobacco Use. Due on due Goal Order Annual PT. Due on due Goal Creatinine. Due on due Goal PHQ-9. Due on du e Goal Review Allergy L ist. Due on due Goal Medication Recon ciliation. Due on due Goal Tobacco Use. Due on due Goal OARS. Due on due Goal DEVELOPMENT ENG Scanned. Due on due Goal AST (SGOT). Due on due Goal ENVELOPE FOLD OPERATOR Paperwork. Due on due Goal Weight. [...] Goal Tobacco Use. Due on due Goal ENVELOPE FOLD OPERATOR Paperwork. Due on due Goal Creatinine. Due on due Goal AST (SGOT). Due on due Goal PHQ-9. Due on du e Goal Order Annual PT. Due on due Goal DEVELOPMENT ENG Scanned. Due on due Goal Review Allergy L ist. Due on due Goal Creatinine. Due on due Goal Weight. Due on d ue Goal ALT (SGPT). Due on due Goal Update Social Hi story. Due on due Goal UDT. Due on due Goal AST (SGOT). Due on due Goal DEVELOPMENT ENG Scanned. Due on due Goal OARS. Due on due Goal PHQ-9. Due on du e Goal Height. Due on d ue Goal Review Allergy L ist. Due on due Goal Tobacco Use. Due on due Goal Order Annual PT. Due on due Goal Medication Recon ciliation. Due on due Goal ENVELOPE FOLD OPERATOR Paperwork. Due on due Referral Ordered: KANIKA PINTO -[facility] : Family Medicine (related to Other intervertebral disc degeneration, lumbosacral region) ordered Referral Referred To: KANIKA PINTO [facility]
[address] [place], [address] [phone] Ordered: Referrals: [facility] : Family Medicine. KANIKA PINTO ordered Referral Ordered: MRI LUMBAR SPINE W/O DYE ordered Appointment Anton Liz BOOKED Appointment Cram, Liz BOOKED Appointment Cram, Liz BOOKED Future Order: Radiology Order MR Lumbar WO ([id number]), Ordered on: Ordered Future Order: Lab Order Drug Kiley t Def 22+ Classes (G0483), Ordered on: Ordered Future Order: Lab Order COMPLIAN CE DRUG ANALYSIS, URINE, WITH MED REPORT ([id number]), Ordered on: Ordered Future Order: Lab Order Drug Kiley t Def 22+ Classes (G0483), Ordered on: Ordered Future Order: Lab Order COMPLIAN CE DRUG ANALYSIS, URINE, WITH MED REPORT ([id number]), Ordered on: Ordered Future Order: Lab Order COMPLIAN CE DRUG ANALYSIS, URINE, WITH MED REPORT ([id number]), Ordered on: Ordered History Of Present Illness Encounter Date Complaint History Of Dave nt Illness low back pain Severity level i s 3. Duration: chronic. The problem is fluctuating. It occurs persistently. The client describes the pain as burning, sharp and tingling. Symptoms are aggravated by ascending stairs, bending, descending stairs, lifting, sitting, housework, rising from sitting and prolonged positioning. Symptoms are relieved by heat, massage, pain meds/drugs, rest, TENS and changing positions. Comments: Evon presents in clinic for a follow up and medications refill regarding chronic neck and low back pain with radiation into BLE. Her pain has been fluctuating over the past month. Reports current medication regimen provides 60-70% pain relief. Medications allow for increased functionality. Denies side effect. She has been utilizing oxycodone 1-2 tabs at bedtime to help with sleep during flares, but would not like a refill at this time. No other concerns today. Comments: Evon presents via [facility] for a virtual follow up and medications refill regarding chronic neck and low back pain with radiation into BLE. Her pain has been worse over the past month. She e-mailed to report a severe flare to the center of her low back that was lending to sweating and nausea. Improvement noted with small rx of oxycodone she has been utilizing at bedtime prn. Pain not back to baseline but notes improvement with slowing down her activities. Ongoing increased burning/tingling in her left fingertips (2nd, 3rd, 4th). Reports current medication regimen provides 60% pain relief. Taking Tramadol 6/day. Medications allow for increased functionality. Denies side effect. No other concerns today. low back pain Severity level i s 7. Duration: chronic. The problem is worsening. low back pain Severity level i s 7. Duration: chronic. The problem is worsening. Comments: Evon presents via [facility] for a virtual follow up and medications refill regarding chronic neck and low back pain with radiation into BLE. Her pain has been mostly stable over the past month. Flares noted with increased work activity which generally improves with rest. Ongoing increased burning/tingling in her left fingertips (2nd, 3rd, 4th). Notes she has not experienced any dizziness recently.Reports current medication regimen provides 75% pain relief. Taking Tramadol 6/day. Medications allow for increased functionality. Denies side effect. No other concerns today. low back pain Severity level i s 4. Duration: chronic. The problem is worsening. It occurs persistently. The client describes the pain as sharp and tingling. Symptoms are aggravated by twisting, housework, rising from sitting position and prolonged positioning. Symptoms are relieved by heat, pain meds/drugs, stretching, TENS and changing positions. Comments: Evon presents in clinic for a follow up and medications refill regarding chronic low back pain with radiation into BLE. Her pain has been worse overall. Flares noted with increased work activity which generally improves with rest. She has been experiencing increased burning/tingling in her left fingertips (2nd, 3rd, 4th) and LLE recently.Reports current medication regimen provides significant pain relief. Taking Tramadol 6/day. Medications allow for increased functionality. Denies side effect. No other concerns today. low back pain Severity level i s 5. Duration: chronic. The problem is stable. Comments: Evon presents via [facility] for a virtual follow up and medications refill regarding chronic low back pain with radiation into BLE. Her pain has been stable overall. Flares noted with increased work activity which generally improves with rest. She has completed cervical imaging for review today. Continues to experience tightness but notes tingling has improved.Reports current medication regimen provides 70% pain relief. Taking Tramadol 6/day. Medications allow for increased functionality. Denies side effect. No other concerns today. Comments: Evon presents via [facility] for a virtual follow up and medications refill regarding chronic low back pain with radiation into BLE. Her pain has been stable overall. Flares noted with increased work activity which generally improves with rest. She shares recent ER visit as she woke up feeling like she was floating and having difficulty with balance. Brain imaging was WNL, but she was encouraged to complete cervical imaging. Sx have somewhat improved. Notes having chronic neck pain and notices crunching and popping in her neck.Reports current medication regimen provides 70% pain relief. Taking Tramadol 6/day. Medications allow for increased functionality. Denies side effect. No other concerns today. low back pain Severity level i s 6. Duration: chronic. The problem is stable. Comments: Evon presents in clinic for a follow up and medications refill regarding chronic low back pain with radiation into BLE. Her pain has been stable overall. Unchanged in terms of location or character. Flares noted with increased work activity which generally improves with rest.Reports current medication regimen provides 80% pain relief. Taking Tramadol 6/day. Medications allow for increased functionality. Denies side effect. No other concerns today. Reports having a few Tramadol at work so may be a couple tabs short. low back pain Severity level i s 1. Duration: chronic. The problem is fluctuating. It occurs persistently. The client describes the pain as burning, sharp and tingling. Symptoms are aggravated by bending, housework, rising from a sitting position and prolonged positioning. Symptoms are relieved by heat, ice, massage, pain meds/drugs, stretching, TENS and changing positions. low back pain Severity level i s 5. Duration: chronic. The problem is stable. Comments: Evon presents via [facility] for a virtual follow up and medications refill regarding chronic low back pain. Her pain has been stable overall. Unchanged in terms of location or character. Tingling sensation in lateral LLE she was experiencing last month has resolved.Notes recently being placed on fluoxetine.Reports current medication regimen provides 80% pain relief. Taking Tramadol 6/day. Medications allow for increased functionality. Denies side effect. No other concerns today. Comments: Evon presents in clinic for a follow up and medications refill regarding chronic low back pain. Her pain has been stable overall. Notes tingling sensation in lateral LLE currently, however this is not painful.Reports current medication regimen provides 75-80% pain relief. Taking Tramadol 6/day. Medications allow for increased functionality. Denies side effect. No other concerns today. low back pain Severity level i s 1. Duration: ongoing. The problem is fluctuating. The client describes the pain as burning and tingling. Symptoms are aggravated by bending, housework and prolonged positioning. Symptoms are relieved by heat, massage, pain meds/drugs, stretching, changing positions and TENS. low back pain Severity level i s 4. Duration: chronic. The problem is stable. Location of pain is lower back. Comments: Evon presents via [facility] for virtual follow up and medications refill regarding chronic low back pain. Her pain has been stable overall.Of note, she was discharged from the hospital earlier today. She was there for an infection from a cat bite, managed with antibiotics. Reports current medication regimen provides 90% pain relief, decreasing pain to a 4/10. Taking Tramadol 6/day. Medications allow for increased functionality. Denies side effect. No other concerns today. Just filled her Rx so has a full bottle of tramadol. Comments: Jalen erza is here for a virtual follow up [...] functionality. Presents short about 3 tabs of [place]. She is not sure what happened, but requests to get off [place] anyway. Notes some SEs of increased depression when taking the [place]. Denies other side effects from current medication [...] functionality. She reports that she thinks of [place] as a bad drug and does not [...] She will be following up with a roping tender soon to evaluate other spots. Additionally notes [...] a change to her medication regimen. D/C'd [place] 5/325 mg and started Tramadol 50 mg at max 6/day on 12/15. Medication not counted today. Feels this regimen has provided more relief so far, although has noticed some increased leg pain, currently tolerable. Denies any significant SE's and doesn't think she will ever switch back to [place]. She continues to have good benefit with [...] remaining medication in her camper at her [facility] as she was living there temporarily [...] functionality. States she is planning on discontinuing [place] once she is more settled after moving [...] done and will have it sent to [facility]. Will be starting PT soon. She [...] - reports she has 2 tabs of [place] left at work but otherwise is not [...] work today.Presents with #16 tramadol and #6 [place] - on track. Reports current medication regimen [...] #2 tramadol 50mg - surplus, and no Springfield 5/325mg - d/o 12/13/18. Reports current medication regimen provides moderate pain relief and allows for increased functionality. Denies side effects from current medication regimen.No other concerns today. low back pain (comments) Patient is here for follow-up and medication refills. Patient has #38 Tramadol and #5 [place] remaining today - on track. Reports at [...] Patient has #29 Tramadol (surplus) and #6.5 [place] (on track( remaining today. Reports at least 80% relief from the medication which increases her daily activity level. Denies side effects. States she did something while moving things around her house and has increased pain on the left side of her back. Requesting and order for her to repeat Lumbar ESTRELLA that she had done at [facility] (due to insurance purposes) earlier this [...] previous injections provided significant relief.Presents with #12 [place] - on track, and #13 Tramadol - on track. Reports current medication regimen provides 80% pain relief and allows for increased functionality. Denies side effects from current medication regimen.No other concerns today. low back pain (comments) Patient is here for follow-up and medication refills. Patient has #9 Tramadol and #6 [place] remaining today - on track. Reports at [...] pain (comments) Evon i s here for f/u and medication management. Has #8 [place] and #3 tramadol - short. She is unsure why she is short on medications, stating she has not done anything different with her medications. Reports she keeps some pills at work but trusts her co-workers. States she had an ESTRELLA at [facility] about a month ago, which provided at least 25% pain relief. Denies any numbness or tingling in her legs since the injection. She inquired about decreasing Springfield at next visit. No other concerns. low [...] follow-up and medication refills. Patient has #1 [place] and #3 Tramadol remaining today - 2 [...] still interested in pursuing an injection, however [facility] does not take her insurance [...] refills. Patient has #10 Tramadol and #5 [place] remaining today - on track. Reports at [...] pain (comments) Evon ellison s here for a followup and medication refill. She presents with #4 Tramadol and #1 [place]- on track. Medications continue to be helpful [...] follow-up and medication refills. Patient has #11 [place] (on track) and #32 Tramadol (>4 days [...] with #52 Tramadol- on track and #7 [place]- 1 day short. Believes she may have [...] has #13 Tramadol (on track) and #2 [place] (2.5 days short) remaining today. Reports at [...] moving. Of note, the weaning process of Springfield did not go as well as she had hoped since this started before the holidays. low back pain (comments) Patient is here for follow-up and medication refills. Patient has #4 Springfield (due out 12/02/16--small surplus) and #30 Tramadol (due out 12/03/16--large surplus) remaining today. Reports at least 50% relief from the medication which increases her daily activity level. Patient is wanting to get off of the [place] and just use Tramadol. She believes she [...] Patient has #49 Tramadol - surplus, #0 [place] remaining today - on track. Reports significant relief from the medication, Springfield has been effective. Patient reports tingling on [...] pain. She has #44 Tramadol and #8 [place], which is appropriate. She reports medications bring [...] Patient has #24 Tramadol (surplus) and no [place] remaining (3 days short). Reports taking more Springfield after falling 4 weeks ago. Post-fall pain resolved by chiropractic and massage. Medications provide 80% pain relief; denies any SE. Is going on a vacation to [facility]. low back pain Severity level i [...] f/u and medication refill. Presents with #2 [place] which is short and #12 tramadol which is appropriate. Discusses having some [place] in her daily pill organizer. Reports 80% [...] therapy, stretching and chiropractic. low back pain Severity level i s 5-6. Duration: chronic. The problem is fluctuating. It occurs persistently. Location of pain is lower back.The patient describes the pain as burning. Symptoms are aggravated by lifting, running, standing, twisting, walking and stairs. Symptoms are relieved by heat, massage, pain meds/drugs and stretching. low back pain (comments) Evon i s here for f/u and medication refill. [...] her last dose of tramadol yesterday and Springfield about 3 days ago. She stretched her [...] any radicular pain. She tried ESIs at [facility] in the past with no lasting [...] ice and pain meds/drugs. 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 She has 28 tramadol [...] is on track. She is going to [place] for vacation tomorrow. No new concerns. Had [...]
== END 2023-09-13 15:27 | disposition home or self-care (01) ==
PROVIDERS: PCP Family Medicine; Visit Provider Family Medicine
DX: S89.92XA Unspecified injury of left lower leg, 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 (principal); V43.52XA Car driver injured in collision with other type car in traffic accident, 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; Y92.410 Unspecified street and highway as the place of occurrence of the external cause
CPT/HCPCS: A0998